=== PATIENT | male | born 1970 | race Caucasian/White ===

== ENCOUNTER 2020-01-10 09:55 | Emergency (ER) | payer BC, SELFPAY ==
[2020-01-10 10:04] VITALS: BP 133/66; PULSE 80; RESP 16; TEMP 36.8; O2SAT 98
--- NOTE | 2020-01-10 10:06 | ED.URI ---
HPI - URI/Sore Throat General Chief Complaint: Upper Respiratory Infection Stated Complaint: cold with congestion Time Seen by Provider: 01/10/20 10:06 Source: patient and RN notes reviewed History of Present Illness HPI Narrative: Patient is a 49-year-old male that presents the urgent care with complaints of rhinorrhea, congestion, stuffy nose, nonproductive cough. Patient states is been ongoing since last Saturday. Patient states that he did get back from a [employer] cruise approximately 1 week ago and he typically has these symptoms after he has been on a cruise . Patient denies any fever or body aches. States that he has been using DayQuil, NyQuil and Advil. Denies any wheezing or shortness of breath. No other acute complaints. No acute distress noted. Patient read the plan of care. Related Data Home Medications Medication Instructions Recorded Confirmed carbidopa-levodopa 1 tablet PO BID 01/10/20 01/10/20 cyanocobalamin (vitamin B-12) 500 mcg PO DAILY 01/10/20 01/10/20 [Vitamin B-12] rosuvastatin 10 mg PO DAILY 01/10/20 01/10/20 ustekinumab [Stelara] 90 mg SUBCUT ONCE 01/10/20 01/10/20 Allergies Allergy/AdvReac Type Severity Reaction Status Date / Time No Known Allergies Allergy Verified 01/10/20 10:14 Review of Systems Review of Systems: Narrative: CONSTITUTIONAL: Denies fever, chills, or sweats. EYES: Denies visual changes, redness, or discharge. ENT: Reports of rhinorrhea, sinus congestion CARDIOVASCULAR: Denies chest pain, palpitations, or edema. RESPIRATORY: Reports of nonproductive cough without wheezing or dyspnea GASTROINTESTINAL: Denies abdominal pain, nausea, vomiting, or diarrhea. GENITOURINARY: Denies dysuria or hematuria. SKIN: Denies rash or itching. MUSCULOSKELETAL: Denies back pain, joint pain, or myalgia. NEUROLOGIC: Denies headache, numbness, or weakness. All other systems reviewed are negative, except as documented in HPI. PMFSH Comments At the time of my signature, I reviewed and agree with the nursing past medical, surgical, social, and family history. There is no relevant family history pertinent to the patient complaint. Exam Narrative: Exam Narrative: GENERAL: This is a well-nourished, well-developed patient, in no apparent distress. HEAD: normocephalic, atraumatic. EYES: PERRL. Sclera clear/white. Vision is grossly intact. EARS: External ears normal, auditory canals clear and without drainage, TMs normal without perforation. Hearing grossly intact. NOSE: External nose normal with no obvious nasal discharge, nares without redness, clear rhinorrhea. THROAT: Mucous membranes moist, posterior pharynx clear. Moderate postnasal drainage NECK: Neck supple, non-tender without lymphadenopathy CARDIOVASCULAR: Regular rate and rhythm without murmurs, gallops, or rubs. RESPIRATORY: Clear to auscultation. Breath sounds equal bilaterally. No wheezes, rales, or rhonchi. SKIN: warm, intact with no suspicious lesions or rash, good texture and turgor. NEURO: awake, alert, and oriented to person, place and time. There were no obvious focal neurologic abnormalities. EXTREMITIES: No clubbing, cyanosis, or edema. Course Vital Signs Vital signs: Vital Signs Temperature 98.3 F 01/10/20 10:04 Pulse Rate 80 01/10/20 10:04 Respiratory Rate 16 01/10/20 10:04 Blood Pressure 133/66 01/10/20 10:04 Pulse Oximetry 98 01/10/20 10:04 Temperature 98.3 F 01/10/20 10:04 Pulse Rate 80 01/10/20 10:04 Respiratory Rate 16 01/10/20 10:04 Blood Pressure 133/66 01/10/20 10:04 Pulse Oximetry 98 01/10/20 10:04 Reviewed MDM - URI/Sore Throat MDM Narrative Medical decision making narrative: Advised the patient to complete steroid regimen as prescribed. Use Flonase and Claritin for allergic rhinitis and congestion relief. May use Advil/Tylenol as needed. Use humidifier at night. Make sure to eat and drink with the medication. Increase fluids. Follow-up with PCP within 2 to 5 days
== END 2020-01-10 10:23 | disposition home or self-care (01) ==
PROVIDERS: Emergency Provider Nurse Practitioner Family
DX: J06.9 Acute upper respiratory infection, unspecified (principal); G20 Parkinson's disease; K50.90 Crohn's disease, unspecified, without complications
CPT/HCPCS: 99213; G0463

== ENCOUNTER 2025-03-27 13:49 | Emergency (ER) | payer BC, SELFPAY ==
--- OUTSIDE RECORDS SUMMARY | 2025-03-27 13:51 | XMS_ITS | Encounter Summary ---
Author Organization [facility] Address [address] [facility] [place] [address] Phone Care Team Providers Care Avionics Systems Technician Name Role Phone Cem Hinojosa MD Primary Care Provider [phone] Kajal Varma MD Unavailable [phone] Luis Bahena MD Unavailable [phone] Reason for Visit * Reason Comments Medication Refill Encounter Details Date Type Department Care Team (Late st Contact Info) Description 02/19/2024 [facility]ill [facility] [address]2 [place] [phone] Cem Hinojosa MD [address] [address] Medication Refill Social History Tobacco Use Types Packs/Day Years Used Date Smoking Tobacco: Never Smokeless Tobacco: Never Alcohol Use Standard Drinks/Week Comments No 0 (1 standard drink = 0.6 oz pur e alcohol) PHQ-2 Answer Date Recorded Total Score - Questions 1-9 0 02/02 Education Answer Date Recorded What is the highest level of school you have completed or the highest degree you have received? 12th grade 09/02/2023 Sexually Active Control Partners Comments Yes Female Sex and Gender Information Value Date Recorded Sex Assigned at Not on file Legal Sex Male 12:12 AM CDT Gender Identity Not on file Sexual Orientation Not on file documented as of this encounter Miscellaneous Notes * Telephone Encounter - Lavern García RN - 02/19/2024 9:52 AM CDT Medication failed the protocol, provider to review and approve the medication order if appropriate. Requested Prescriptions Pending Prescriptions Disp Refills vitamin b-12 (CYANOCOBALAMIN) 500 MCG Tablet [Pharmacy Med Name: VITAMIN B-12 500 MCG TABLET] 90 Tablet 1 Sig: TAKE 1 TABLET BY MOUTH EVERY DAY Not Delegated - Off Protocol Failed - 02/19/2024 12:05 AM Failed - This refill cannot be delegated Passed - Visit with relevant provider in past 12 months or upcoming 90 days Recent Visits Date Type Provider Dept 09/03/23 Office Visit Cem Hinojosa MD [facility] Showing recent visits within past 365 days and meeting all other requirements Future Appointments Date Type Provider Dept 03/02/24 Appointment Cem Hinojosa MD [facility] Showing future appointments within next 90 days and meeting all other requirements documented in this encounter Plan of Treatment Upcoming Encounters Date Type Department Care Team (Late st Contact Info) Description 08/23/2025 3:45 PM CDT Office Visit [facility] Medical [facility] - Neurology - [place] [address] [place] [address] Luis Bahena MD #2 [place] [address] 09/09/2025 3:45 PM REFERRAL SPECIALIST Office Visit [facility] Medical [facility] - Family Medicine - [place] [address] [place] [address] Cem Hinojosa MD [address] [address] documented as of this encounter Visit Diagnoses Not on filedocumented in this encounter Additional Health Concerns Assessment Noted Time PHQ-9 Depression Total Score: 0 02/21/20 21 10:15 AM CDT documented as of this encounter Care Teams Avionics Systems Technician Relationship Specialty Start Date End Date Cem Hinojosa MD #[address] [address] PCP - General Family Medicine 12/31/17 Kajal Varma MD #[address] [address] Gastroenterology 10/24/21 Luis Bahena MD [address]2 [place] [address] Consulting Physician Neurology 09/24/22 documented as of this encounter
--- OUTSIDE RECORDS SUMMARY | 2025-03-27 13:51 | XMS_ITS | Encounter Summary ---
Author Organization [facility] Address [address] [facility] [place] [address] Phone Care Team Providers Care Financial Reporting Analyst Name Role Phone Cem Hinojosa MD Primary Care Provider [phone] Kajal Varma MD Unavailable [phone] Luis Bahena MD Unavailable [phone] Reason for Visit * Reason Comments Medication Refill Encounter Details Date Type Department Care Team (Late st Contact Info) Description 12/19/2023 Refill [facility] [address]2 [place] [phone] Cem Hinojosa MD [address] [address] Medication Refill Social History Tobacco Use Types [...] Telephone Encounter - Lavern García RN - 12/20/2023 10:23 AM CST PRN medication requires review from provider Per nursing clinical judgement, provider to review and approve the medication(s) order(s) if appropriate. Requested Prescriptions Pending Prescriptions Disp Refills sildenafil citrate (VIAGRA) 100 MG Tablet [Pharmacy Med Name: Sildenafil Citrate 100 MG Oral Tablet] 10 Tablet 0 Sig: TAKE 1 TABLET BY MOUTH NEEDED FOR ERECTILE DYSFUNCTION Erectile Dysfunction Medication Protocol Passed - 12/19/2023 7:53 AM Passed - Visit with relevant provider in past 12 months or upcoming 90 days Recent Visits Date Type Provider Dept 09/03/23 Office Visit Cem Hinojosa MD [facility] 02/08/23 Office Visit Robbin Moralez APRN, CUSTOMER ENGINEERING SPECIALIST [facility] Showing recent visits within past 365 days and meeting all other requirements Future Appointments Date Type Provider Dept 03/02/24 Appointment Cem Hinojosa MD [facility] Showing future appointments within next 90 days and meeting all other requirements Passed - Absence of nitrates on med list Passed - Erectile dysfunction on problem list LER TRACTOR OPERATOR documented in this encounter Plan of Treatment Upcoming Encounters Date Type Department Care Team (Late st Contact Info) Description 08/23/2025 3:45 PM CDT Office Visit [facility] Medical [facility] - Neurology - [place] [address]2 [place] [address] Luis Bahena MD [address]2 [place] [address] 09/09/2025 3:45 PM CRAWLER TRACTOR OPERATOR Office Visit [facility] Medical [facility] - Family Medicine [facility] [address]2 [facility] [place] [address] Cem Hinojosa MD #[address] [address] documented as of this encounter Visit Diagnoses Diagnosis Erectile dysfunction, unspecified erectile dysfunction type documented in this encounter Additional Health Concerns Assessment Noted Time PHQ-9 Depression Total Score: 0 02/21/20 21 10:15 AM CDT documented as of this encounter Care Teams Financial Reporting Analyst Relationship Specialty Start Date End Date Cem Hinojosa MD #[address] [address] PCP - General Family Medicine 12/31/17 Kajal Varma MD #[address] [address] Gastroenterology 10/24/21 Luis Bahena MD [address]2 [place] [address] Consulting Physician Neurology 09/24/22 documented as of this encounter
--- OUTSIDE RECORDS SUMMARY | 2025-03-27 13:51 | XMS_ITS | Encounter Summary ---
Author Organization [facility] Address [address] [facility] [place] [address] Phone Care Team Providers Care Circular Saw Filer Name Role Phone Cem Hinojosa MD Primary Care Provider [phone] aKjal Varma MD Unavailable [phone] Luis Bahena MD Unavailable [phone] Reason for Visit * Reason Comments Medication Refill Encounter Details Date Type Department Care Team (Late st Contact Info) Description 04/11/2024 Refill [facility] #2 [place] [address] Cem Hinojosa MD [address] [address] Medication Refill Social History Tobacco Use Types [...] encounter Miscellaneous Notes * Telephone Encounter - Ann Marie Jackman RN - 04/11/2024 4:50 PM CDT PRN medication requires provider review. Per nursing clinical judgement, provider to review and approve the medication(s) order(s) if appropriate. Requested Prescriptions Pending Prescriptions Disp Refills sildenafil citrate (VIAGRA) 100 MG Tablet [Pharmacy Med Name: Sildenafil Citrate 100 MG Oral Tablet] 10 Tablet 0 Sig: TAKE 1 TABLET BY MOUTH NEEDED FOR ERECTILE DYSFUNCTION Erectile Dysfunction Medication Protocol Passed - 04/11/2024 2:37 PM Passed - Visit with relevant provider in past 12 months or upcoming 90 days Recent Visits Date Type Provider Dept 03/02/24 Office Visit Cem Hinojosa MD [facility] 09/03/23 Office Visit Cem Hinojosa MD [facility] Showing recent visits within past 365 days and meeting all other requirements Future Appointments No visits were found meeting these conditions. Showing future appointments within next 90 days and meeting all other requirements Passed - Absence of nitrates on med list Passed - Erectile dysfunction on problem list documented in this encounter Plan of Treatment Upcoming Encounters Date Type Department Care Team (Late st Contact Info) Description 08/23/2025 3:45 PM CDT Office Visit [facility] - Neurology [facility] #2 [place] [address] Luis Bahena MD #2 [place] [address] 09/09/2025 3:45 PM ELECTRICAL AND INSTRUMENT ENGINEER Office Visit [facility] Family Medicine [facility] #2 [place] [address] Cem Hinojosa MD #[address] [address] documented as of this encounter Visit Diagnoses Diagnosis Erectile dysfunction, unspecified erectile dysfunction type documented in this encounter Additional Health Concerns Assessment Noted Time PHQ-9 Depression Total Score: 0 02/21/20 21 10:15 AM CDT documented as of this encounter Care Teams Circular Saw Filer Relationship Specialty Start Date End Date Cem Hinojosa MD #[address] [address] PCP - General Family Medicine 12/31/17 Kajal Varma MD #[address] [address] Gastroenterology 10/24/21 Luis Bahena MD [address]2 [place] [address] Consulting Physician Neurology 09/24/22 documented as of this encounter
--- OUTSIDE RECORDS SUMMARY | 2025-03-27 13:51 | XMS_ITS | Encounter Summary ---
Author Organization [facility] Address [address] [place] [address] Phone Care Team Providers Care Stock Blender Name Role Phone Cem Hinojosa MD Primary Care Provider [phone] Kajal Varma MD Unavailable [phone] Luis Bahena MD Unavailable [phone] Reason for Visit * Reason Comments Medication Refill Encounter Details Date Type Department Care Team (Late st Contact Info) Description 09/23/2023 Refill [facility] Medicine [facility] #2 [place] [phone] Cem Hinojosa MD [address] [address] Medication Refill Social History Tobacco Use Types [...] on file Sexual Orientation Not on file COVID-19 Exposure Response Date Recorded In the last 10 days, have yo u been in contact with someone who was confirmed or suspected to have Coronavirus/COVID-19? No / Unsure 09/02/2023 10:01 AM CDT documented as of this encounter Miscellaneous Notes * Telephone Encounter - Lavern García RN - 09/23/2023 2:52 PM CST PRN medication requires review from provider Per nursing clinical judgement, provider to review and approve the medication(s) order(s) if appropriate. Requested Prescriptions Pending Prescriptions Disp Refills sildenafil citrate (VIAGRA) 100 MG Tablet [Pharmacy Med Name: Sildenafil Citrate 100 MG Oral Tablet] 10 Tablet 0 Sig: TAKE 1 TABLET BY MOUTH NEEDED FOR ERECTILE DYSFUNCTION Erectile Dysfunction Medication Protocol Passed - 09/23/2023 9:58 AM Passed - Visit with relevant provider in past 12 months or upcoming 90 days Recent Visits Date Type Provider Dept 09/03/23 Office Visit Cem Hinojosa MD [facility] 02/08/23 Office Visit Robbin Moralez APRN, PATTERN DESIGNER [facility] Showing recent visits within past 365 days and meeting all other requirements Future Appointments No visits were found meeting these conditions. Showing future appointments within next 90 days and meeting all other requirements Passed - Absence of nitrates on med list Passed - Erectile dysfunction on problem list ONNEL RESEARCH SCIENTIST documented in this encounter Plan of Treatment Upcoming Encounters Date Type Department Care Team (Late st Contact Info) Description 08/23/2025 3:45 PM CDT Office Visit [facility] - Neurology - [place] #2 [place] [address] Luis Bahena MD #2 [place] [address] 09/09/2025 3:45 PM PERSONNEL RESEARCH SCIENTIST Office Visit [facility] - Family Medicine - [place] [address]2 [place] [address] Cem Hinojosa MD #[address] [address] documented as of this encounter Visit Diagnoses Diagnosis Erectile dysfunction, unspecified erectile dysfunction type documented in this encounter Additional Health Concerns Assessment Noted Time PHQ-9 Depression Total Score: 0 02/21/20 21 10:15 AM CDT documented as of this encounter Care Teams Stock Blender Relationship Specialty Start Date End Date Cem Hinojosa MD #[address] [address] PCP - General Family Medicine 12/31/17 Kajal Varma MD #[address] [address] Gastroenterology 10/24/21 Luis Bahena MD #2 [place] [address] Consulting Physician Neurology 09/24/22 documented as of this encounter
--- OUTSIDE RECORDS SUMMARY | 2025-03-27 13:51 | XMS_ITS | Encounter Summary ---
Author Organization [facility] Address [address] [place] [address] Phone Care Team Providers Care Oxygen Plant Operator Name Role Phone Nik Horn DO Unavailable [phone] Cem Hinojosa MD Primary Care Provider [phone] Encounter Details Date Type Department Care Team (Late st Contact Info) Description 03/17/2020 Telephone [facility] Gastroenterology [address] [place] [address] 8th [place] [address] [place] [address] Jessica Rodrigues, [facility] Social History Tobacco Use Types Packs/Day Years Used Date Smoking Tobacco: Never Smokeless Tobacco: Never Alcohol Use Standard Drinks/Week Comments No 0 (1 standard drink = 0.6 oz pur e alcohol) Sex and Gender Information Value Date Recorded Sex Assigned at Not on file Legal Sex Male 10:48 AM RN [facility] Gender Identity Not on file Sexual Orientation Not on file documented as of this encounter Plan of Treatment Not on file documented as of this encounter Visit Diagnoses Not on filedocumented in this encounter Care Teams Oxygen Plant Operator Relationship Specialty Start Date End Date Cem Hinojosa MD [address] [address] PCP - General 03/04/18 Nik Horn, [address] [place] [address] 08/16/17 documented as of this encounter
--- OUTSIDE RECORDS SUMMARY | 2025-03-27 13:51 | XMS_ITS | Encounter Summary ---
Author Organization [facility] Address [address] [facility] [place] [address] Phone Care Team Providers Care Embedded Software Test Engineer Name Role Phone Cem Hinojosa MD Primary Care Provider [phone] Kajal Varma MD Unavailable Luis Bahena MD Unavailable [phone] Reason for Visit * Reason Comments Medication Refill Encounter Details Date Type Department Care Team (Late st Contact Info) Description 08/04/2024 Refill [facility] - Neu[facility] #2 [place] [address] Cem Hinojosa MD [address] [address] Medication Refill Social History Tobacco Use Types [...] Telephone Encounter - Lavern García RN - 08/04/2024 3:41 PM CDT Name from pharmacy: CARBIDOPA-LEVODOPA 25-100 TAB Will file in chart as: carbidopa-levodopa (SINEMET) 25-100 MG Tablet The original prescription was reordered on 08/04/2024 by Luis Bahena MD. documented in this encounter Plan of Treatment Upcoming Encounters Date Type Department Care Team (Late st Contact Info) Description 08/23/2025 3:45 PM CDT Office Visit [facility] - Neurology - [place] #2 [facility] [place] [address] Luis Bahena MD #2 [place] [address] 09/09/2025 3:45 PM PROGRAM CONTROL ANALYST Office [facility] - Family Medicine - [place] #2 [place] [address] Cem Hinojosa MD #[address] [place] [address] documented as of this encounter Visit Diagnoses Not on filedocumented in this encounter Additional Health Concerns Assessment Noted Time PHQ-9 Depression Total Score: 0 02/21/20 21 10:15 AM CDT documented as of this encounter Care Teams Embedded Software Test Engineer Relationship Specialty Start Date End Date Cem Hinojosa MD #[address] [place] [address] PCP - General Family Medicine 12/31/17 Kajal Varma MD [address] [place] [address] Gastroenterology 10/24/21 Luis Bahena MD #2 [place] [address] Consulting Physician Neurology 09/24/22 documented as of this encounter
--- OUTSIDE RECORDS SUMMARY | 2025-03-27 13:51 | XMS_ITS | Encounter Summary ---
Author Organization [facility] Address [address] [facility] [place] [address] Phone Care Team Providers Care Water Treatment Operator Name Role Phone Cem Hinojosa MD Primary Care Provider [phone] Kajal Varma MD Unavailable [phone] Luis Bahena MD Unavailable [phone] Reason for Visit * Reason Comments Medication Refill Encounter Details Date Type Department Care Team (Late st Contact Info) Description 11/01/2023 Refill [facility] #2 [place] [address] Cem Hinojosa MD #[address] [address] Medication Refill Social History Tobacco Use Types [...] Telephone Encounter - Lavern García RN - 11/01/2023 1:30 PM CST PRN medication requires review from provider Per nursing clinical judgement, provider to review and approve the medication(s) order(s) if appropriate. Requested Prescriptions Pending Prescriptions Disp Refills sildenafil citrate (VIAGRA) 100 MG Tablet [Pharmacy Med Name: Sildenafil Citrate 100 MG Oral Tablet] 10 Tablet 0 Sig: TAKE 1 TABLET BY MOUTH NEEDED FOR ERECTILE DYSFUNCTION Erectile Dysfunction Medication Protocol Passed - 11/01/2023 12:26 PM Passed - Visit with relevant provider in past 12 months or upcoming 90 days Recent Visits Date Type Provider Dept 09/03/23 Office Visit Cem Hinojosa MD [facility] 02/08/23 Office Visit Robbin Moralez APRN, QUANTITATIVE STRATEGY ANALYST [facility] Showing recent visits within past 365 days and meeting all other requirements Future Appointments No visits were found meeting these conditions. Showing future appointments within next 90 days and meeting all other requirements Passed - Absence of nitrates on med list Passed - Erectile dysfunction on problem list VIORAL INSTRUCTOR documented in this encounter Plan of Treatment Upcoming Encounters Date Type Department Care Team (Late st Contact Info) Description 08/23/2025 3:45 PM CDT Office Visit [facility] - Neurology [facility] [place] [address] Luis Bahena MD #2 [place] [address] 09/09/2025 3:45 PM BEHAVIORAL INSTRUCTOR Office Visit [facility] Medical [facility] - Family Medicine [facility] [place] [address] Cem Hinojosa MD #[address] [address] documented as of this encounter Visit Diagnoses Diagnosis Erectile dysfunction, unspecified erectile dysfunction type documented in this encounter Additional Health Concerns Assessment Noted Time PHQ-9 Depression Total Score: 0 02/21/20 21 10:15 AM CDT documented as of this encounter Care Teams Water Treatment Operator Relationship Specialty Start Date End Date Cem Hinojosa MD #[address] [address] PCP - General Family Medicine 12/31/17 Kajal Varma MD #[address] [address] Gastroenterology 10/24/21 Luis Bahena MD #2 [place] [address] Consulting Physician Neurology 09/24/22 documented as of this encounter
--- OUTSIDE RECORDS SUMMARY | 2025-03-27 13:51 | XMS_ITS | Encounter Summary ---
Author Organization [facility] Address [address] [facility] [place] [address] Phone Care Team Providers Care Poultry Hanger Name Role Phone Cem Hinojosa MD Primary Care Provider [phone] Kajal Varma MD Unavailable [phone] Luis Bahena MD Unavailable [phone] Encounter Details Date Type Department Care Team (Late st Contact Info) Description 03/22/2025 Results Follow-Up [facility] - Family Medicine [facility] [address] [place] [address] Cem Hinojosa MD #[address] [address] VITAMIN D, 25 HYDROXY TOTAL Social History Tobacco Use Types Packs/Day Years Used Date Smoking Tobacco: Never Smokeless Tobacco: Never Alcohol Use Standard Drinks/Week Comments Never 0 (1 standard drink = 0.6 oz pur e alcohol) [facility] Utilities Answer Date Recorded In the past 12 months has [employer], gas, oil, or water company threatened to shut off services in your home? Patient declined 09/01/2024 Social Connection and Isolation Panel [NHANES] A nswer Date Recorded In a typical week, how many times do you talk on the phone with family, friends, or neighbors? Patient declined 09/01/2024 How often do you get togethe r with friends or relatives? Patient declined 09/01/2024 How often do you attend spiritism or catholic serv ices? Patient declined 09/01/2024 Do you belong to any clubs o r organizations such as spiritism groups, unions, fraternal or athletic groups, or school groups? Patient declined 09/01/2024 How often do you attend meet ings of the clubs or organizations you belong to? Patient declined 09/01/2024 Are you , , di vorced, , never , or living with a partner? Patient declined 09/01/2024 AUDIT-C Answer Date Recorded Q1: How often do you have a drink containing alc ohol? Patient declined 09/01/2024 Q2: How many drinks containi ng alcohol do you have on a typical day when you are drinking? Patient declined 09/01/2024 Q3: How often do you have si x or more drinks on one occasion? Patient declined 09/01/2024 Overall Financial Resource Strain (CARDIA) Answe r Date Recorded How hard is it for you to pa y for the very basics like food, housing, medical care, and heating? Patient declined 09/01/2024 PHQ-2 Answer Date Recorded Total Score - Questions 1-9 4 05/0 04/2025 [facility] - Occupational Stress Questionnaire Answer Date Recorded Do you feel stress - tense, restless, nervous, or anxious, or unable to sleep at night because your mind is troubled all the time - these days? Patient declined 09/01/2024 Exercise Vital Sign Answer Date Recorde d On average, how many days pe r week do you engage in moderate to strenuous exercise (like a brisk walk)? Patient declined On average, how many minutes do you engage in exercise at this level? Patient declined 09/01/2024 Hunger Vital Sign Answer Date Recorded Within the past 12 months, y ou worried that your food would run out before you got the money to buy more. Patient declined Within the past 12 months, t he food you bought just didn't last and you didn't have money to get more. Patient declined PRAPARE - Transportation Answer Date Re corded In the past 12 months, has l ack of transportation kept you from medical appointments or from getting medications? Patient declined 09/01/2024 In the past 12 months, has l ack of transportation kept you from meetings, work, or from getting things needed for daily living? Patient declined 09/01/2024 Housing Stability Vital Sign Answer Abraham e Recorded In the last 12 months, was t here a time when you were not able to pay the mortgage or rent on time? Patient declined 09/01/20 24 In the past 12 months, how m any times have you moved where you were living? 0 09/01/2024 Homeless in the Last Year Not on file 2023 Education Answer Date Recorded What is the [...] on file documented as of this encounter Progress Notes * Itzel Galeano CMA - 03/26/2025 8:55 AM CDT Patient aware * Itzel Galeano CMA - 03/25/2025 10:10 AM CDT Lmom to call back * Itzel Galeano CMA - 03/24/2025 9:57 AM CDT Lmom to call back documented in this encounter Plan of Treatment Upcoming Encounters Date Type Department Care Team (Late st Contact Info) Description 08/23/2025 3:45 PM CDT Office Visit [facility] - Neurology [facility] [address]2 [place] [address] Luis Bahena MD #2 [place] [address] 09/09/2025 3:45 PM KEEPER HEAD Office Visit [facility] - Family [facility] #2 [place] [address] Cem Hinojosa MD #[address] [address] documented as of this encounter Visit Diagnoses Not on filedocumented in this encounter Additional Health Concerns Assessment Noted Time PHQ-9 Depression Total Score: 4 03/09/20 25 3:43 PM CDT documented as of this encounter Care Teams Poultry Hanger Relationship Specialty Start Date End Date Cem Hinojosa MD #[address] [address] PCP - General Family Medicine 12/31/17 Kajal Varma MD #[address] [address] Gastroenterology 10/24/21 Luis Bahena MD [address]2 [place] [address] Consulting Physician Neurology 09/24/22 documented as of this encounter
--- OUTSIDE RECORDS SUMMARY | 2025-03-27 13:51 | XMS_ITS | Encounter Summary ---
Author Organization [facility] Address [address] [facility] [place] [address] Phone Care Team Providers Care Die Machine Operator Name Role Phone Cem Hinojosa MD Primary Care Provider [phone] Kajal Varma MD Unavailable [phone] Luis Bahena MD Unavailable [phone] Reason for Visit * Reason Comments Medication Refill Encounter Details Date Type Department Care Team (Late st Contact Info) Description 08/01/2022 [facility]ill [facility] #2 [place] [address] Cem Hinojosa MD #[address] [address] Medication Refill Social History Tobacco Use Types Packs/Day Years Used Date Smoking Tobacco: Never Smokeless Tobacco: Never Alcohol Use Standard Drinks/Week Comments No 0 (1 standard drink = 0.6 oz pur e alcohol) PHQ-2 Answer Date Recorded Total Score - Questions 1-9 0 02/02 Sexually Active Control Partners Comments Yes Female [...] suspected to have Coronavirus/COVID-19? No / Unsure 07/17/2022 8:40 AM CDT documented as of this encounter Miscellaneous Notes * Telephone Encounter - Lavern García RN - 08/01/2022 12:05 PM CDT Medication failed the protocol, provider to review and approve the medication order if appropriate. Requested Prescriptions Pending Prescriptions Disp Refills Cyanocobalamin (B-12) 500 MCG Tablet [Pharmacy Med Name: B-12 500 MCG TABLET] 30 Tablet 5 Sig: TAKE 1 TABLET BY MOUTH EVERY DAY Not Delegated - Off Protocol Failed - 08/01/2022 10:36 AM Failed - This refill cannot be delegated Passed - Visit with relevant provider in past 12 months or upcoming 90 days Recent Visits Date Type Provider Dept 07/17/22 Office Visit Cem Hinojosa MD [facility] 04/03/22 Office Visit Cem Hinojosa MD [facility] 01/01/22 Office Visit Cem Hinojosa MD [facility] 09/25/21 Office Visit Robbin Moralez APRN, SUPERVISOR MOLDING [facility] [place] Showing recent visits within past 365 days and meeting all other requirements Future Appointments Date Type Provider Dept 10/22/22 Appointment Cem Hinojosa MD [facility] Showing future appointments within next 90 days and meeting all other requirements documented in this encounter Plan of Treatment Upcoming Encounters Date Type Department Care Team (Late st Contact Info) Description 08/23/2025 3:45 PM CDT Office Visit [facility] - Neurology - [place] [address] [place] [address] Luis Bahena MD [address] [place] [address] 09/09/2025 3:45 PM PETROPHYSICAL ENGINEER Office Visit [facility] Medical [facility] - Family Medicine - [place] [address] [place] [address] Cem Hinojosa MD [address] [address] documented as of this encounter Visit Diagnoses Not on filedocumented in this encounter Additional Health Concerns Assessment Noted Time PHQ-9 Depression Total Score: 0 02/21/20 21 10:15 AM CDT documented as of this encounter Care Teams Die Machine Operator Relationship Specialty Start Date End Date Cem Hinojosa MD [address] [address] PCP - General Family Medicine 12/31/17 Kajal Varma MD #[address] [address] Gastroenterology 10/24/21 Luis Bahena MD [address]2 [place] [address] Consulting Physician Neurology 09/24/22 documented as of this encounter
--- OUTSIDE RECORDS SUMMARY | 2025-03-27 13:51 | XMS_ITS | Encounter Summary ---
Author Organization [facility] Address [address] [facility] [place] [address] Phone Care Team Providers Care Recruiting Associate Name Role Phone Cem Hinojosa MD Primary Care Provider [phone] Kajal Varma MD Unavailable [phone] Luis Bahena MD Unavailable [phone] Reason for Visit * Reason Comments Medication Refill Encounter Details Date Type Department Care Team (Late Contact Info) Description 11/15/2022 Refill [facility] #2 [place] [address] Luis Bahena MD #2 [place] [address] Medication Refill Social History Tobacco Use Types [...] as of this encounter Plan of Treatment Upcoming Encounters Date Type Department Care Team (Late Contact Info) Description 08/23/2025 3:45 PM CDT Office Visit [facility] - Neurology [facility] [address] [place] [address] Luis Bahena MD [address] [place] [address] 09/09/2025 3:45 PM TACK COVERER Office Visit [facility] Family Medicine [facility] [address] [facility] [address] Cem Hinojosa MD [address] [address] documented as of this encounter Visit Diagnoses Diagnosis Parkinson's disease Paralysis agitans documented in this encounter Additional Health Concerns Assessment Noted Time PHQ-9 Depression Total Score: 0 02/21/20 21 10:15 AM CDT documented as of this encounter Care Teams Recruiting Associate Relationship Specialty Start Date End Date Cem Hinojosa MD [address] [address] PCP - General Family Medicine 12/31/17 Kajal Varma MD [address] [address] Gastroenterology 10/24/21 Luis Bahena MD [address]2 [place] [address] Consulting Physician Neurology 09/24/22 documented as of this encounter
--- OUTSIDE RECORDS SUMMARY | 2025-03-27 13:51 | XMS_ITS | Encounter Summary ---
Author Organization [facility] Address [address] [facility] [place] [address] Phone Care Team Providers Care Melter Helper Name Role Phone Cem Hinojosa MD Primary Care Provider [phone] Kajal Varma MD Unavailable Luis Bahena MD Unavailable [phone] Reason for Visit * Reason Comments Medication Refill Encounter Details Date Type Department Care Team (Late st Contact Info) Description 01/29/2024 Refill [facility] Family Medicine [facility] #2 [place] [address] Cem Hinojosa MD #[address] [address] Medication Refill Social History Tobacco Use Types [...] Telephone Encounter - Lavern García RN - 01/30/2024 9:33 AM CDT PRN medication requires review from provider Per nursing clinical judgement, provider to review and approve the medication(s) order(s) if appropriate. Requested Prescriptions Pending Prescriptions Disp Refills sildenafil citrate (VIAGRA) 100 MG Tablet [Pharmacy Med Name: Sildenafil Citrate 100 MG Oral Tablet] 10 Tablet 0 Sig: TAKE 1 TABLET BY MOUTH NEEDED FOR ERECTILE DYSFUNCTION Erectile Dysfunction Medication Protocol Passed - 01/29/2024 4:03 PM Passed - Visit with relevant provider in past 12 months or upcoming 90 days Recent Visits Date Type Provider Dept 09/03/23 Office Visit Cem Hinojosa MD [facility] [place] 02/08/23 Office Visit Robbin Moralez APRN, CUTTING AND BONING SUPERVISOR [facility] Show[facility] recent visits within past 365 days and meeting all other requirements Future Appointments Date Type Provider Dept 03/02/24 Appointment Cem Hinojosa MD [facility] [place] Showing future appointments within next 90 days and meeting all other requirements Passed - Absence of nitrates on med list Passed - Erectile dysfunction on problem list documented in this encounter Plan of Treatment Upcoming Encounters Date Type Department Care Team (Late st Contact Info) Description 08/23/2025 3:45 PM CDT Office Visit [facility] - Neurology [facility] [place] [address] Luis Bahena MD #2 [facility] [place] [address] 09/09/2025 3:45 PM MANAGER OF SOFTWARE Office Visit [facility] Medical [facility] - Family Medicine [facility] [address] [place] [address] Cem Hinojosa MD #[address] [place] [address] documented as of this encounter Visit Diagnoses Diagnosis Erectile dysfunction, unspecified erectile dysfunction type documented in this encounter Additional Health Concerns Assessment Noted Time PHQ-9 Depression Total Score: 0 02/21/20 21 10:15 AM CDT documented as of this encounter Care Teams Melter Helper Relationship Specialty Start Date End Date Cem Hinojosa MD #[address] [address] PCP - General Family Medicine 12/31/17 Kajal Varma MD #[address] [address] Gastroenterology 10/24/21 Luis Bahena MD #2 [place] [address] Consulting Physician Neurology 09/24/22 documented as of this encounter
--- OUTSIDE RECORDS SUMMARY | 2025-03-27 13:51 | XMS_ITS | Encounter Summary ---
Author Organization [facility] Address [address] [facility] [place] [address] Phone Care Team Providers Care Adjunct Communications Faculty Member Name Role Phone Cem Hinojosa MD Primary Care Provider [phone] Kajal Varma MD Unavailable [phone] Luis Bahena MD Unavailable [phone] Reason for Visit * Reason Comments Medication Refill Encounter Details Date Type Department Care Team (Late st Contact Info) Description 01/10/2023 Refill [facility] Family [facility] #2 [place] [address] Cem Hinojosa MD #[address] [address] Medication Refill Social History Tobacco Use Types [...] suspected to have Coronavirus/COVID-19? No / Unsure 12/14/2022 3:10 PM CORN GROWER documented as of this encounter Miscellaneous Notes * Telephone Encounter - Cem Hinojosa MD - 01/11/2023 10:11 AM CORN GROWER Thanks for the update! GROWER * Telephone Encounter - Lavern García RN - 01/11/2023 7:37 AM CST Pt is scheduled to see Robbin 02/08/23. GROWER * Telephone Encounter - Cem Hinojosa MD - 01/10/2023 8:11 PM CORN GROWER Please make sure he is scheduled. Overdue for appointment. Thanks! GROWER * Telephone Encounter - Lavern García RN - 01/10/2023 4:30 PM CST Medication failed the protocol, provider to review and approve the medication order if appropriate. Requested Prescriptions Pending Prescriptions Disp Refills rosuvastatin (CRESTOR) 5 MG Tablet [Pharmacy Med Name: ROSUVASTATIN TAB 5MG] 90 Tablet 3 Sig: TAKE 1 TABLET NIGHTLY Hmg CoA Reductase Inhibitors Protocol Failed - 01/10/2023 4:13 PM Failed - Lipid panel in past 12 months LDL Date Value Ref Range Status 02/03/2022 0 0 - 130 mg/dL Final HDL CHOLESTEROL Date Value Ref Range Status 09/25/2021 49.1 >40 mg/dL Final CHOLESTEROL Date Value Ref Range Status 09/25/2021 188 <=200 mg/dL Final TRIGLYCERIDES Date Value Ref Range Status 09/25/2021 98 <150 mg/dL Final VLDL Date Value Ref Range Status 09/25/2021 20 5 - 55 mg/dL Final CHOL/HDL RATIO Date Value Ref Range Status 09/25/2021 3.8 0.0 - 4.4 Final NON-HDL CHOLESTEROL Date Value Ref Range Status 09/25/2021 138.9 (H) <130 mg/dL Final Passed - Visit with relevant provider in past 12 months or upcoming 90 days Recent Visits Date Type Provider Dept 07/17/22 [facility]22 Office Visit [facility] Show[facility] recent visits within past 365 days and meeting all other requirements Future Appointments Date Type Provider Dept 02/08/23 Appointment Robbin Moralez APRN, ACOUSTICAL INSTALLER [facility] Showing future appointments within next 90 days and meeting all other requirements GROWER documented in this encounter Plan of Treatment Upcoming Encounters Date Type Department Care Team (Late st Contact Info) Description 08/23/2025 3:45 PM CDT Office Visit [facility] Group - Neurology - [place] #2 [place] [address] Luis Bahena MD #2 [place] [address] 09/09/2025 3:45 PM CORN GROWER Office Visit [facility] Medical [facility] - Family Medicine [facility] #2 [place] [address] Cem Hinojosa MD #[address] [address] documented as of this encounter Visit Diagnoses Not on filedocumented in this encounter Additional Health Concerns Assessment Noted Time PHQ-9 Depression Total Score: 0 02/21/20 21 10:15 AM CDT documented as of this encounter Care Teams Adjunct Communications Faculty Member Relationship Specialty Start Date End Date Cem Hinojosa MD #[address] [address] PCP - General Family Medicine 12/31/17 Kajal Varma MD #[address] [id number] Gastroenterology 10/24/21 Luis Bahena MD #2 [place] [address] Consulting Physician Neurology 09/24/22 documented as of this encounter
--- OUTSIDE RECORDS SUMMARY | 2025-03-27 13:51 | XMS_ITS | Encounter Summary ---
Author Organization [facility] Address [address] [facility] [place] [address] Phone Care Team Providers Care Rf Test Engineer Name Role Phone Cem Hinojosa MD Primary Care Provider [phone] Kajal Varma MD Unavailable [phone] Luis Bahena MD Unavailable [phone] Reason for Visit * Reason Comments Medication Refill Encounter Details Date Type Department Care Team (Late st Contact Info) Description 05/23/2023 Refill [facility] #2 [place] [address] Cem Hinojosa MD #[address] [address] Medication Refill Social History Tobacco Use Types [...] Telephone Encounter - Lavern García RN - 05/24/2023 11:45 AM CDT PRN medication requires review from provider Per nursing clinical judgement, provider to review and approve the medication(s) order(s) if appropriate. Requested Prescriptions Pending Prescriptions Disp Refills sildenafil citrate (VIAGRA) 100 MG Tablet [Pharmacy Med Name: Sildenafil Citrate 100 MG Oral Tablet] 10 Tablet 0 Sig: Take 1 Tablet by mouth as needed for Erectile Dysfunction. Erectile Dysfunction Medication Protocol Passed - 05/23/2023 4:57 PM Passed - Visit with relevant provider in past 12 months or upcoming 90 days Recent Visits Date Type Provider Dept 02/08/23 Office Visit Robbin Moralez APRN, CNP [facility] [place] 07/17/22 Office Visit Cem Hinojosa MD [facility] Showing recent visits within past 365 [...] Description 08/23/2025 3:45 PM CDT Office Visit [facility] - Neurology [facility] #2 [place] [address] Luis Bahena MD #2 [place] [address] 09/09/2025 3:45 PM AVP Office Visit [facility] Medical [facility] - Family Medicine [facility] #2 [place] [address] Cem Hinojosa MD #[address] [address] documented as of this encounter Visit Diagnoses Diagnosis Erectile dysfunction, unspecified erectile dysfunction type documented in this encounter Additional Health Concerns Assessment Noted Time PHQ-9 Depression Total Score: 0 02/21/20 21 10:15 AM CDT documented as of this encounter Care Teams Rf Test Engineer Relationship Specialty Start Date End Date Cem Hinojosa MD #[address] [address] PCP - General Family Medicine 12/31/17 Kajal Varma MD #[address] [address] Gastroenterology 10/24/21 Luis Bahena MD #2 [place] [address] Consulting Physician Neurology 09/24/22 documented as of this encounter
--- OUTSIDE RECORDS SUMMARY | 2025-03-27 13:51 | XMS_ITS | Encounter Summary ---
Author Organization [facility] Address [address] [facility] [place] [place] [address] Phone Care Team Providers Care Inhalation Therapy Aides Teacher Name Role Phone Cem Hinojosa MD Primary Care Provider [phone] Kajal Varma MD Unavailable [phone] Luis Bahena MD Unavailable [phone] Reason for Visit * Reason Onset Date Comments Medication Refill Medication Refill 09/27/2020 Encounter Details Date Type Department Care Team (Late st Contact Info) Description 09/15/2020 [facility] [address] [place] [address] Cem Hinojosa MD [address] [address] Medication Refill; Medication Refill Social History Tobacco Use Types Packs/Day Years Used Date Smoking Tobacco: Never Smokeless Tobacco: Never Alcohol Use Standard Drinks/Week Comments No 0 (1 standard drink = 0.6 oz pur e alcohol) PHQ-2 Answer Date Recorded Total Score - Questions 1-9 0 04/05 Sex and Gender Information Value Date Recorded Sex Assigned at Not on file Legal Sex Male 12:12 AM CDT Gender Identity Not on file Sexual Orientation Not on file COVID-19 Exposure Response Date Recorded In the last month, have you been in contact with someone who was confirmed or suspected to have Coronavirus / COVID-19? No / Unsure 09/12/2020 7:57 AM DIESEL POWER MECHANIC documented as of this encounter Miscellaneous Notes * Telephone Encounter - Sandy Cavanaugh RN - 09/16/2020 7:12 AM CST Medication failed the protocol, provider to review and approve the medication order if appropriate. Requested Prescriptions Pending Prescriptions Disp Refills vitamin b-12 (CYANOCOBALAMIN) 500 MCG Tablet [Pharmacy Med Name: VITAMIN B-12 TABS 500MCG] 90 Tab 3 Sig: TAKE 1 TABLET DAILY Off-Protocol Failed - 09/15/2020 11:20 PM Failed - Medication not assigned to a protocol, review manually. Passed - Valid encounter within last 12 months Past Office Visits Recent Outpatient Visits 3 weeks ago Right-sided chest wall pain [facility] Family [facility] Cem Hernandez MD 4 months ago Dyslipidemia [facility] Cem Hernandez MD 11 months ago [facility] 1 year ago Neural foraminal stenosis of cervical spine [facility] Robbin Davis APN, RADHA 1 year ago Cervical radicular pain [facility] - Robbin Davis APN, PLANER OPERATOR Upcoming Appointments Future Appointments In 1 month Cem Hinojosa MD [facility] 5 months Luis Bahena MD [facility] Neurology [facility] ESTIMATOR PRINTING - Recent and Past Visits Recent Visits Date Type Provider Dept 08/24/20 Office Visit Cem Hinojosa MD [facility] 05/02/20 Office Visit Cem Hinojosa MD [facility] 10/20/19 Office Visit Robbin Moralez APN, RADHA [facility] 07/07/19 Office Visit Robbin Moralez APN, CNP [facility] Showing recent visits within past 460 days with a meds authorizing provider and meeting all other requirements Future Appointments Date Type Provider Dept 10/31/20 Appointment Cem Hinojosa MD [facility] Showing future appointments within next 90 days with a meds authorizing provider and meeting all other requirements EL POWER MECHANIC documented in this encounter Plan of Treatment Upcoming Encounters Date Type Department Care Team (Late st Contact Info) Description 08/23/2025 3:45 PM CDT Office Visit [facility] - Neurology [facility] #2 [place] [address] Luis Bahena MD [address]2 [place] [address] 09/09/2025 3:45 PM DIESEL POWER MECHANIC Office Visit [facility] Family Medicine [facility] #2 [place] [address] Cem Hinojosa MD [address] [address] documented as of this encounter Visit Diagnoses Not on filedocumented in this encounter Additional Health Concerns Infection Onset Date Last Indicated Resolved Time COVID - 19 Confirmed 10/14/2020 10/14/2020 020 12:18 AM DIESEL POWER MECHANIC Assessment Noted Time PHQ-9 Depression Total Score: 0 05/02/20 20 8:41 AM CDT documented as of this encounter Care Teams Inhalation Therapy Aides Teacher Relationship Specialty Start Date End Date Cem Hinojosa MD #[address] [address] PCP - General Family Medicine 12/31/17 Kajal Varma MD #[address] [address] Gastroenterology 10/24/21 Luis Bahena MD [address] [place] [address] Consulting Physician Neurology 09/24/22 documented as of this encounter
--- OUTSIDE RECORDS SUMMARY | 2025-03-27 13:51 | XMS_ITS | Encounter Summary ---
Author Organization [facility] Address [address] [facility] [place] [address] Phone Care Team Providers Care Joinery Patternmaker Name Role Phone Cem Hinojosa MD Primary Care Provider [phone] Kajal Varma MD Unavailable [phone] Luis Bahena MD Unavailable [phone] Reason for Visit * Reason Comments Medication Refill Encounter Details Date Type Department Care Team (Late Contact Info) Description 01/30/2021 [facility]ill [facility] - [facility] #1 [place] [address] Luis Bahena MD [address]2 [place] [address] Medication Refill Social History Tobacco Use Types Packs/Day Years Used Date Smoking Tobacco: Never Smokeless Tobacco: Never Alcohol Use Standard Drinks/Week Comments No 0 (1 standard drink = 0.6 oz pur e alcohol) PHQ-2 Answer Date Recorded Total Score - Questions 1-9 0 04/05 Sexually Active Control Partners Comments Yes Female Sex and Gender Information Value Date Recorded Sex Assigned at Not on file Legal Sex Male 12:12 AM CDT Gender Identity Not on file Sexual Orientation Not on file documented as of this encounter Plan of Treatment Upcoming Encounters Date Type Department Care Team (Late Contact Info) Description 08/23/2025 3:45 PM CDT Office [facility] - Neurology [facility] #[address] [place] [address] Luis Bahena MD [address] [place] [address] 09/09/2025 3:45 PM VESSEL OPERATOR Office Visit [facility] Family Medicine [facility] [address] [place] [address] Cem Hinojosa MD [address] [address] documented as of this encounter Visit Diagnoses Not on filedocumented in this encounter Additional Health Concerns Assessment Noted Time PHQ-9 Depression Total Score: 0 05/02/20 20 8:41 AM CDT documented as of this encounter Care Teams Joinery Patternmaker Relationship Specialty Start Date End Date Cem Hinojosa MD [address] [address] PCP - General Family Medicine 12/31/17 Kajal Varma MD [address] [address] Gastroenterology 10/24/21 Luis Bahena MD [address] [facility] [address] Consulting Physician Neurology 09/24/22 documented as of this encounter
--- OUTSIDE RECORDS SUMMARY | 2025-03-27 13:51 | XMS_ITS | Clinical Summary ---
Author Organization [facility] Address [address] [address] Phone Care Team Providers Care Mophead Sewer Name Role Phone Cem Hinojosa MD Primary Care Provider [phone] Kajal Varma MD Unavailable [phone] Luis Bahena MD Unavailable [phone] Allergies No known active allergies Medications docusate sodium (COLACE) 100 MG Capsule Take 1 Cap by mouth 2 times daily as needed for Constipation. To be held for loose stools/diarrhea . 60 Cap 018 Active ustekinumab (STELARA) 90 MG/ML Solution Prefilled Syringe 90 mg by Subcutaneous route. 019 Active tacrolimus (PROTOPIC) 0.1 % Ointment Apply. 019 Active Cholecalciferol (VITAMIN D3 PO) Take by mouth. Active Skyrizi 360 MG/2.4ML Solution Cartridge 360 mg by Subcutaneous route. 024 Active Carbidopa-Levodop a (Duopa) 4.63-20 MG/ML SuspensionIndicat ions:Parkinson's disease with dyskinesia and fluctuating manifestations (HCC) ADMINISTER CONTENTS OF ONE DUOPA CASSETTE VIA PEG-J FOR UP TO 16 HOURS EACH DAY. MORNING DOSE: 12ML (LOCKOUT TIME OF 20 HRS), CONTINUOUS DOSE: 3.3 ML/HR, EXTRA DOSE:5 ML (LOCKOUT TIME OF 2 HRS) 2800 mL 11 024 Active rosuvastatin (CRESTOR) 5 MG Tablet TAKE 1 TABLET NIGHTLY 90 Tablet 1 025 Active Fenofibrate Micronized 134 MG CapsuleIndication s:Dyslipidemia TAKE 1 CAPSULE DAILY 90 Capsule 3 025 Active zaleplon (SONATA) 10 MG CapsuleIndication s:Primary insomnia TAKE 1 CAPSULE BY MOUTH EVERY NIGHT 15 Capsule 025 Active omeprazole (PriLOSEC) 40 MG CAPSULE DELAYED RELEASE TAKE 1 CAPSULE BY MOUTH EVERY DAY 90 Capsule 1 025 Active sildenafil citrate (VIAGRA) 100 MG TabletIndications :Erectile dysfunction, unspecified erectile dysfunction type TAKE 1 TABLET BY MOUTH NEEDED FOR ERECTILE DYSFUNCTION 10 Tablet 025 Active carbidopa-levodop a (SINEMET) 25-100 MG Tablet TAKE 1 TABLET BY MOUTH AT NIGHT, 1/2 HOUR BEFORE EATING 90 Tablet 025 Active vitamin b-12 (CYANOCOBALAMIN) 500 MCG Tablet TAKE 1 TABLET BY MOUTH EVERY DAY 90 Tablet 1 025 Active vitamin b-12 (CYANOCOBALAMIN) 500 MCG Tablet TAKE 1 TABLET BY MOUTH EVERY DAY 90 Tablet 1 024 2024 Discontinued carbidopa-levodop a (SINEMET) 25-100 MG Tablet TAKE 1 TABLET BY MOUTH AT NIGHT, 1/2 HOUR BEFORE EATING 90 Tablet 025 2024 Discontinued Active Problems Problem Noted Date Diagnosed Date Multiple lung nodules 09/01/2024 Lung nodule seen on imaging study 07/17/2022 Erectile dysfunction 07/17/2022 Noncompliance 07/17/2022 Constipation 01/02/2022 Bacteriuria 10/31/2020 Hematuria 10/18/2020 Terminal ileitis of small intestine 10/18/2020 Hypokalemia 10/18/2020 Elevated lipase 10/18/2020 Leukopenia 10/18/2020 Elevated LFTs 10/08/[address] nodules on CT 09/24/2020 Coronary artery calcification seen on CT scan Hepatic steatosis 09/24/2020 Right-sided chest wall pain 08/24/2020 High risk medications (not anticoagulants) long- term use 10/18/2019 Elevated serum creatinine 07/12/2019 Obesity (BMI 30-39.9) 01/12/2019 Crohn's disease with complication 09/15/2018 Overview (10/20/2019): Added automatically from request for surgery [id number] Abnormal biliary HIDA scan 02/28/2018 Calculus of gallbladder with out cholecystitis without obstruction 02/19/2018 Generalized postprandial abdominal pain 02/20/20 18 B12 deficiency 02/02/2018 Vitamin D insufficiency 02/02/2018 Fatigue 12/31/2017 PTSD (post-traumatic stress disorder) 10/04/2017 Parkinson's disease 04/30/2016 ADHD (attention deficit hyperactivity disorder) Dyslipidemia Insomnia GERD (gastroesophageal reflux disease) Encounters Date Type Department Care Team Description 03/22/2025 Results Follow-Up [facility] [address]2 [place] [address] Cem Hinojosa MD VITAMIN D, 25 HYDROXY TOTAL 03/20/2025 Refill [facility] #2 [place] [address] Cem Hinojosa MD Medication Refill 03/20/2025 Refill [facility] #2 [place] [address] Luis Bahena MD Medication Refill 03/09/2025 3:45 PM CDT Office Visit [facility] [address] [place] [address] Cem Hinojosa MD Vitamin D insufficiency (Primary Dx); Screening for prostate cancer; Hepatic steatosis Discharge Disposition: Discharged to home or Selfcare 03/09/2025 Travel 02/08/2025 3:30 PM CDT Office Visit [facility] #2 [place] [address] Luis Bahena MD Parkinson's disease with dyskinesia and fluctuating manifestations (HCC) (Primary Dx) Discharge Disposition: Discharged to home or Selfcare 02/08/2025 Travel 02/07/2025 Travel 01/29/2025 Refill [facility]2 [place] [address] Cem Hinojosa MD Medication Refill 01/24/2025 Refill [facility] [place] [address] Cem Hinojosa MD Medication Refill 01/24/2025 Refill [facility] - [facility]rology - [place] [address]2 [place] [address] Luis Bahena MD Medication Refill 01/06/2025 Refill [facility] [address] [place] [address] Cem Hinojosa MD Medication Refill from Last 3 Months Immunizations Immunization Administration Dates Next Due Covid-19, Mrna, Lnp-s, Bival ent, Moderna, 50 Mcg or 25 mcg dose 09/09/2022 Covid-19, Mrna, Lnp-s, PF, 1 00 mcg/0.5 mL Dose (Moderna) 03/25/2021,02/28/2021 Hepatitis A Vaccine 03/30/2016,08/30/2015 Hepatitis B Vaccine 08/09/2016,03/21/2016,2014 Influenza Vaccine 08/30/2015 Influenza Vaccine greater than 3 yrs 04/2022,06/24/2017,08/09/2016,2014,08/04/2011 Influenza Vaccine less than 3 yrs 10/06/2019 Influenza Vaccine, MDCK,quad rivalent, pres free 09/29/2019 Influenza Vaccine, Quadrivalent, PF 11/0 04/2022,09/25/2021,08/24/2020,2017,08/09/2016,08/04/2011 Influenza, Seasonal, Injecta ble, Undefined 10/06/2019,06/24/2017,07/28/2014,2012,08/04/2011,08/09/2010 Pneumococcal Vaccine - 13 Valent 09/29/2019 Pneumococcal Vaccine Adult - 23 Valent 11/04/2005 TDAP Vaccine 10/08/2015,08/30/2015 Tetanus Toxoid, Unspecified Formulation 08/04/2007 Zoster Vaccine Recombinant 11/10/2022,09/09/2022 Family History Medical History Relation Name Comments Heart Disease Father Heart Disease Mother Relation Name Status Comments Father Alive Mother Alive Social History Tobacco Use Types Packs/Day Years Used Date Smoking Tobacco: Never Smokeless Tobacco: Never Tobacco Cessation:Counseling Given: Yes Alcohol Use Standard Drinks/Week Comments Never 0 (1 standard drink = 0.6 oz pur e alcohol) [facility] Utilities Answer Date Recorded In the past 12 months has e electric, gas, oil, or water company threatened to [...] declined 09/01/2024 How often do you attend rastafarian or denominational serv ices? Patient declined 09/01/2024 Do you belong to any clubs o r organizations such as rastafarian groups, unions, fraternal or athletic groups, or [...] Score - Questions 1-9 4 05/0 04/2025 [facility]ational [facility] Questionnaire Answer Date Recorded [...] on file Sexual Orientation Not on file Last Filed Vital Signs Vital Sign Reading Time Taken Comments Blood Pressure 120/72 03/09/2025 3:39 PM CDT Pulse 68 03/09/2025 3:39 PM CDT Temperature 36.3 C (97.3 F) 03/09/2025 3:39 PM CDT Respiratory Rate 16 02/08/2025 3:22 PM CDT Oxygen Saturation 97% 03/09/2025 3:39 PM CDT Inhaled Oxygen Concentration - - Weight 106.6 kg (235 lb) 03/09/2025 3:39 PM CDT Height 180.3 cm (5' 11 ) 03/09/2025 3:39 PM CDT Body Mass Index 32.78 03/09/2025 3:39 PM CDT Plan of Treatment Upcoming Encounters Date Type Department Care Team (Late st Contact Info) Description 08/23/2025 3:45 PM CDT Office Visit [facility] - Neurology - [place] #2 [place] [address] Luis Bahena MD #2 [place] [address] 09/09/2025 3:45 PM CLINICAL REHAB LIAISON Office Visit [facility] - [facility] #[address] [place] [address] Cem Hinojosa MD #[address] [address] Health Maintenance Due Date Last Done Comments Cologuard 2020 Immunochemical Fecal Occult Blood 2020 SARS-COV-2 Immunization ( season) 2024 09/09/2022, 09/27/2021, 03/25/2021, Additional history exists Pneumococcal Immunization (50+ years) (3 of 3 - PCV20 or PCV21) 09/29/2024 09/29/2019, 11/04/2005 Influenza Immunization (Season Ended) 2025 09/09/2022, 09/09/2022, 09/25/2021, Additional history exists Td Immunization Every 10 Years (Adults With 1 Tdap) 10/08/2025 10/08/2015, 08/30/2015 Colonoscopy 08/15/2033 08/15/2023, 08/04, 09/24/2018, Additional history exists Colorectal Cancer Screening 08/15/2033 Respiratory Syncytial Virus (RSV) Immunization (Adult) (1 - 1-dose 75+ series) 2045 08/15/2023, 08/04, 09/24/2018, Additional history exists Hepatitis B Immunization Completed 016, 03/21/2016, 08/30/2015 Pneumococcal Immunization Combined Discontinued 09/29/2019, 11/04/2005 Hepatitis C Virus (HCV) Screening Completed 09/28/2020 Zoster Immunization Completed 11/10/2022, 2 Human Papillomavirus (HPV) Immunization Aged Out No longer eligible based on patient's age to complete this topic Meningococcal Immunization (ACWY) Aged Out No longer eligible based on patient's age to complete this topic Rotavirus Immunization Aged Out No lo nger eligible based on patient's age to complete this topic Medical Devices Implanted Type Area Senior Animator Device Identifier Shelf Expiration Date Model / Serial / Lot Device Clsr 70cm 6fr Angio-Seal Vip .035in Vasc Collagen Valuelink Gw Insertion th J Leather Skinner - [id number] Implanted:Qty: 1 on 10/26/2020 by Shasha Slater MD at [facility] IMPLANT Right: [employer] 06/03/2021 [id number] / / [id number] Procedures Procedure Name Priority Date/Time Associated Diagnosis Comments VITAMIN D, 25 HYDROXY TOTAL Routine 03/13/2025 Vitamin D insufficiency PSA SCREEN Routine 03/13/2025 Screening for prostate cancer PSA FREE & TOTAL 03/13/2025 12:0 0 AM CDT VITAMIN D, 25 HYDROXY TOTAL Today 03/13/2025 12:00 AM CDT Vitamin D insufficiency HM COLONOSCOPY 08/15/2023 12:00 AM CDT HEPATITIS PANEL ACUTE (AHP) Routine 09/28/2020 Hepatic steatosis Elevated LFTs from Last 3 Months or Most Recently Relevant to Health Maintenance Results * VITAMIN D, 25 HYDROXY TOTAL (03/13/2025) Only the most recent of2 resultswithin the time period is included. Blood 03/13/2025 Cem Hinojosa MD CHEMISTRY ORDERABLES Louise l Result * PSA FREE & TOTAL (03/13/2025 12:00 AM CDT) Prostatic Specific Antigen, Free 1.80 SCAN 03/13/2025 Cem Hinojosa MD CHEMISTRY ORDERABLES Louise l Result SCAN * PSA SCREEN (03/13/2025) Blood 03/13/2025 Cem Hinojosa MD CHEMISTRY ORDERABLES Louise l Result * HM COLONOSCOPY (08/15/2023 12:00 AM CDT) 08/15/2023 Provider Scan PROCEDURE/MINOR SURGICAL ORDERAB LES Final Result SCAN * HEPATITIS PANEL ACUTE (AHP) (09/28/2020) Blood Result [facility] Cem Hinojosa MD HEMATOLOGY ORDERABLES Fin al Result from Last 3 Months or Most Recently Relevant to Health Maintenance Insurance [facility] Care Teams Mophead Sewer Relationship Specialty Start Date End Date Cem Hinojosa MD #[address] [address] PCP - General Family Medicine 12/31/17 Kajal Varma MD #[address] [address] Gastroenterology 10/24/21 Luis Bahena MD #2 [place] [address] Consulting Physician Neurology 09/24/22
--- OUTSIDE RECORDS SUMMARY | 2025-03-27 13:51 | XMS_ITS | Encounter Summary ---
Author Organization [facility] Address [address] [facility] [place] [address] Phone Care Team Providers Care Logistics/Shipper Name Role Phone Cem Hinojosa MD Primary Care Provider [phone] Kajal Varma MD Unavailable [phone] Luis Bahena MD Unavailable [phone] Reason for Visit * Reason Comments Medication Refill Encounter Details Date Type Department Care Team (Late st Contact Info) Description 10/26/2023 Refill [facility] - Family Medicine [facility] #2 [place] [address] Cem Hinojosa MD #[address] [address] Medication Refill Social History Tobacco Use Types [...] Telephone Encounter - Lavern García RN - 10/29/2023 9:03 AM CST 01/10/23 - 1 year supply - [facility] mail order OR TAX ACCOUNTANT documented in this encounter Plan of Treatment Upcoming Encounters Date Type Department Care Team (Late st Contact Info) Description 08/23/2025 3:45 PM CDT Office [facility] - Neurology [facility] [facility] [place] [address] Luis Bahena MD [facility] [place] [address] 09/09/2025 3:45 PM SENIOR TAX ACCOUNTANT Office Visit [facility] Family Medicine [facility] [place] [address] Cem Hinojosa MD #[address] [place] [address] documented as of this encounter Visit Diagnoses Not on filedocumented in this encounter Additional Health Concerns Assessment Noted Time PHQ-9 Depression Total Score: 0 02/21/20 21 10:15 AM CDT documented as of this encounter Care Teams Logistics/Shipper Relationship Specialty Start Date End Date Cem Hinojosa MD #[address] [place] [address] PCP - General Family Medicine 12/31/17 Kajal Varma MD #[address] [place] [address] Gastroenterology 10/24/21 Luis Bahena MD #2 [place] [address] Consulting Physician Neurology 09/24/22 documented as of this encounter
--- OUTSIDE RECORDS SUMMARY | 2025-03-27 13:51 | XMS_ITS | Encounter Summary ---
Author Organization [facility] Address [address] [facility] [place] [address] Phone Care Team Providers Care Bleach Packer Name Role Phone Cem Hinojosa MD Primary Care Provider [phone] Kajal Varma MD Unavailable [phone] Luis Bahena MD Unavailable [phone] Encounter Details Date Type Department Care Team (Latest Contact Info) Description 10/20/2020 Transcribe [facility] [address] [place] [address] Shasha Slater MD [address] [place] [address] Angina pectoris (HCC) (Primary Dx); Encounter for preprocedural cardiovascular examination Social History Tobacco Use Types Packs/Day Years [...] have Coronavirus / COVID-19? No / Unsure 10/23/2020 9:24 AM OXYGEN THERAPY TEACHER documented as of this encounter Plan of Treatment Upcoming Encounters Date Type Department Care Team (Late st Contact Info) Description 08/23/2025 3:45 PM CDT Office Visit [facility] - Neurology [facility] [address] [place] [address] Luis Bahena MD [address]2 [place] [address] 09/09/2025 3:45 PM OXYGEN THERAPY TEACHER Office Visit [facility] - Family Medicine [facility] [address] [place] [address] Cem Hinojosa MD [address] [address] documented as of this encounter Results * PROTIME (PT) (PROTHROMBIN TIME) (10/23/2020 9:37 AM OXYGEN THERAPY TEACHER) PROTIME-PATIENT 13.5 11.6 - 14.8 sec 10/23/2020 11:11 AM OXYGEN THERAPY TEACHER [facility] INR 1.0 0.9 - 1.2 10/23/2020 11:11 AM OXYGEN THERAPY TEACHER [facility] Comment: Therapeutic Ranges INR = 2.0-3.0: Venous thromb, atrial fib, pul embolism, tissue heart valve, ami. INR = 2.5-3.5: Mechanical heart valve Critical value for INR is >/= 4.5 Blood Venipuncture / Unknown 10/23/2020 9:37 AM OXYGEN THERAPY TEACHER 10/23/2020 10:47 AM OXYGEN THERAPY TEACHER us Shasha Slater MD HEMATOLOGY ORDERABLES Louise l Result [facility] #1 [place] [address] * SARS-COV-2 BY MOLECULAR (10/23/2020 9:27 AM OXYGEN THERAPY TEACHER) SARSCOV2 NOT DETECTED (Referen ce Range for this test is Not Detected ) [facility] THERMOFISHER FAST DX 10/24/2020 1:56 AM OXYGEN THERAPY TEACHER [facility] Comment:This test was perfor med by a PCR method. Swab NASOPHARYNGEAL STRUCTURE / Unknown Non-Phlebotomy Collection / Unknown 10/23/2020 9:27 AM OXYGEN THERAPY TEACHER 10/23/2020 10:52 AM OXYGEN THERAPY TEACHER Narrative [facility] - 10/24/2020 1:56 AM OXYGEN THERAPY TEACHER Authorized Fact Sheets about this test for providers and patients are available at: https://www.fda.gov/medical-devices/hzdkhzfuo-livsknzkkv-jiugaly-devices/emergen -us e-authorizations us Shasha Slater MD MICROBIOLOGY - GENERAL ORD ERABLES Final Result Performing Organization Address City/State/[facility] Co de Phone Number [facility] [address] documented in this encounter Visit Diagnoses Diagnosis Angina pectoris- Primary Other and unspecified angina pectoris Encounter for preprocedural cardiovascular examination Pre-operative cardiovascular examination documented in this encounter Additional Health Concerns Infection Onset Date Last Indicated Resolved Time COVID - 19 Confirmed 10/14/2020 10/14/2020 020 12:18 AM OXYGEN THERAPY TEACHER Assessment Noted Time PHQ-9 Depression Total Score: 0 05/02/20 20 8:41 AM CDT documented as of this encounter Care Teams Bleach Packer Relationship Specialty Start Date End Date Cem Hinojosa MD [address] [address] PCP - General Family Medicine 12/31/17 Kajal Varma MD #[address] [address] Gastroenterology 10/24/21 Luis Bahena MD [address]2 [place] [address] Consulting Physician Neurology 09/24/22 documented as of this encounter
--- OUTSIDE RECORDS SUMMARY | 2025-03-27 13:51 | XMS_ITS | Encounter Summary ---
Author Organization [facility] Address [address] [facility] [place] [address] Phone Care Team Providers Care Outpatient Clerk Name Role Phone Cem Hinojosa MD Primary Care Provider [phone] Kajal Varma MD Unavailable [phone] Luis Bahena MD Unavailable [phone] Reason for Visit * Reason Comments Medication Refill Encounter Details Date Type Department Care Team (Late st Contact Info) Description 01/08/2024 Refill [facility] - Family Medicine [facility] #2 [place] [phone] Cem Hinojosa MD [address] [address] Medication Refill Social History Tobacco Use Types [...] Encounter - Ann Marie Jackman RN - 01/08/2024 10:05 AM CARCASS TRIMMER Medication failed the protocol, provider to review and approve the medication order if appropriate. Requested Prescriptions Pending Prescriptions Disp Refills rosuvastatin (CRESTOR) 5 MG Tablet [Pharmacy Med Name: ROSUVASTATIN TAB 5MG] 90 Tablet 3 Sig: TAKE 1 TABLET NIGHTLY Hmg CoA Reductase Inhibitors Protocol Failed - 01/08/2024 9:31 AM Failed - Lipid panel in past 12 months LDL Date Value Ref Range Status 02/08/2023 91 0 - 130 mg/dL Final Failed - CMP in past 12 months No results found for: SODIUM , POTASSIUM , CHLORIDE , CO2VEN , ANIONGAP , GLUCOSE , BUN , CREATININE , BCRATIO8 , TOTALPROTEIN , ALBUMIN , AGRT , AGRATIO , CALCIUM , TBIL , SGOTAST , SGPTALT , ALKALINEPHO , GFRNA , GFRA , GFRES , CMPREQFAST , CMPFAST Passed - Visit with relevant provider in past 12 months or upcoming 90 days Recent Visits Date Type Provider Dept 09/03/23 Office Visit Cem Hinojosa MD [facility] [place] 02/08/23 Office Visit Robbin Moralez APRN, WHEELCHAIR DRIVER [facility] Show[facility] recent visits within past 365 days and meeting all other requirements Future Appointments Date Type Provider Dept 03/02/24 Appointment Cem Hinojosa MD [facility] [place] Showing future appointments within next 90 days and meeting all other requirements ASS TRIMMER documented in this encounter Plan of Treatment Upcoming Encounters Date Type Department Care Team (Late st Contact Info) Description 08/23/2025 3:45 PM CDT Office Visit [facility] - [facility]rology - [place] [address] [place] [address] Luis Bahena MD #2 [place] [address] 09/09/2025 3:45 PM CARCASS TRIMMER Office Visit [facility] - Family [facility] #2 [place] [address] Cem Hinojosa MD [address] [address] [address] documented as of this encounter Visit Diagnoses Not on filedocumented in this encounter Additional Health Concerns Assessment Noted Time PHQ-9 Depression Total Score: 0 02/21/20 21 10:15 AM CDT documented as of this encounter Care Teams Outpatient Clerk Relationship Specialty Start Date End Date Cem Hinojosa MD [address] [address] PCP - General Family Medicine 12/31/17 Kajal Varma MD [address] [address] Gastroenterology 10/24/21 Luis Bahena MD [address]2 [place] [address] Consulting Physician Neurology 09/24/22 documented as of this encounter
--- OUTSIDE RECORDS SUMMARY | 2025-03-27 13:51 | XMS_ITS | Clinical Summary ---
Author Organization [facility] Address [address] [facility] [place] [address] Care Team Providers Care Typing Section Chief Name Role Phone Robbin Moralez APRN-SUPERVISOR EVAPORATOR Primary Care Pro vider Source Comments [facility],non-owned Affiliates and Associated Physician Practices is amultiple site organization consisting of ambulatory clinics and hospital sitesin [place], [place], [place] and [place]. This disclosure is being madepursuant to the Care Everywhere program and may not contain all information available regarding this patient. Last updated 18.[facility] Allergies No known active allergies Medications * Be aware that medications may not be up to date on this document. Alwaysverify current medications with the patient. carbidopa-levo dopa (SINEMET) 25-100 MG tablet Take 8 tablets by mouth once daily 7 Active cyanocobalamin (VITAMIN B-12) 500 MCG tablet 9 Active vitamin D, ergocalciferol , (DRISDOL) 69718 units capsule 9 Active hydrocortisone (HYTONE) 2.5 % cream 8 Active ketoconazole (NIZORAL) 2 % cream Apply to affected area once daily 8 Active rosuvastatin (CRESTOR) 10 MG tablet Take 10 mg by mouth once daily 9 Active tacrolimus (PROTOPIC) 0.1 % ointment Apply to affected area 2 times daily 9 Active ustekinumab (STELARA) 90 MG/ML prefilled syringe Inject 90 mg subcutaneously 9 Active fenofibrate micronized (LOFIBRA) 134 MG capsule 9 Active Active Problems Problem Noted Date Diagnosed Date Cervical radiculopathy Ulnar neuropathy at elbow, left Family History Medical History Relation Name Comments High Cholesterol Father Relation Name Status Comments Father Social History Tobacco Use Types Packs/Day Years Used Date Smoking Tobacco: Never Smokeless Tobacco: Never Alcohol Use Standard Drinks/Week Comments Never 0 (1 standard drink = 0.6 oz pur e alcohol) AUDIT-C Answer Date Recorded Frequency of Alcohol Consumption Never 07/01/2019 Average Number of Drinks Not on file 019 Frequency of Binge Drinking Not on file 06/05 Sex and Gender Information Value Date Recorded Sex Assigned at Not on file 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 Gender Identity Not on file Sexual Orientation Not on file Last Filed Vital Signs Vital Sign Reading Time Taken Comments Blood Pressure 112/65 09/22/2019 8:38 AM FIRE CONTROL SYSTEM INSTALLER Pulse 68 09/22/2019 8:38 AM FIRE CONTROL SYSTEM INSTALLER Temperature 36.7 C (98.1 F) 09/22/2019 8:38 AM FIRE CONTROL SYSTEM INSTALLER Respiratory Rate 18 09/22/2019 8:38 AM FIRE CONTROL SYSTEM INSTALLER Oxygen Saturation 96% 08/12/2019 9:05 AM CDT Inhaled Oxygen Concentration - - Weight 102.1 kg (225 lb) 08/12/2019 9:05 AM CDT Height 180.3 cm (5' 11 ) 08/12/2019 9:05 AM CDT Body Mass Index 31.38 08/12/2019 9:05 AM CDT Plan of Treatment Health Maintenance Due Date Last Done Comments COLOGUARD (AGES 45-75) - COLON CA SCREENING 1970 COLON MONITORING 1970 COLONOSCOPY - COLON CA SCREENING 1970 CT COLONOGRAPHY - COLON CA SCREENING 1970 Colorectal Cancer Screening 1970 FIT - COLON CA SCREENING 1970 FLEX SIG - COLON CA SCREENING 1970 HIV SCREENING 1985 HEPATITIS C SCREENING 08/05/1988 DTAP/TDAP/TD VACCINES (1 - Tdap) 1989 HEPATITIS B VACCINE (1 of 3 - 19+ 3-dose series) 1989 SCREENING FOR DIABETES 07/01/2019 PNEUMOCOCCAL VACCINE 50+ (1 of 1 - PCV) 2020 ZOSTER VACCINE (1 of 2) 2020 COVID-19 VACCINE (1 - 2023- season) 2024 DEPRESSION SCREENING 11/04/2024 INFLUENZA VACCINE (Season Ended) 2025 09/02/2018, 06/24/2017, 08/09/2016, Additional history exists HIB VACCINE Aged Out No longer eligi ble based on patient's age to complete this topic HPV VACCINE Aged Out No longer eligi ble based on patient's age to complete this topic MENINGOCOCCAL (Group B) VACCINE SHARED DECISION-MAKING Aged Out No longer eligible based on patient's age to complete this topic MENINGOCOCCAL GROUPS A/C/Y/W VACCINE Aged Out No longer eligible based on patient's age to complete this topic Insurance [facility] Care Teams Typing Section Chief Relationship Specialty Start Date End Date Robbin Moralez, IYMI-RADHA PCP - General 08/04/19
--- OUTSIDE RECORDS SUMMARY | 2025-03-27 13:51 | XMS_ITS | Encounter Summary ---
Author Organization [facility] Address [address] [facility] [place] [address] Phone Care Team Providers Care Pressure Washer Name Role Phone Cem Hinojosa MD Primary Care Provider [phone] Kajal Varma MD Unavailable [phone] Luis Bahena MD Unavailable Reason for Visit * Reason Comments Medication Refill Encounter Details Date Type Department Care Team (Late st Contact Info) Description 05/20/2022 Refill [facility] - Family Medicine [facility] #2 [place] [phone] Cem Hinojosa MD [address] [address] Medication Refill Social History Tobacco Use Types [...] Telephone Encounter - Lavern García RN - 05/21/2022 12:24 PM CDT Medication failed the protocol, provider to review and approve the medication order if appropriate. Requested Prescriptions Pending Prescriptions Disp Refills [facility] B-12 500 MCG Tablet [Pharmacy Med Name: [facility] VITAMIN B-12 500 MCG TAB] 90 Tablet 0 Sig: TAKE 1 TABLET BY MOUTH EVERY DAY Not Delegated - Off Protocol Failed - 05/20/2022 8:32 AM Failed - This refill cannot be delegated Passed - Visit with relevant provider in past 12 months or upcoming 90 days Recent Visits Date Type Provider Dept 04/03/22 Office Visit Cem Hinojosa MD [facility] 01/01/22 Office Visit Cem Hinojosa MD [facility] 09/25/21 Office Visit Robbin Moralez APRN, [facility] 05/26/21 Office Visit Robbin Moralez APRN, [facility] [place] Showing recent visits within past 365 days and meeting all other requirements Future Appointments Date Type Provider Dept 07/17/22 Appointment Cem Hinojosa MD [facility] [place] Showing future appointments within next 90 days and meeting all other requirements documented in this encounter Plan of Treatment Upcoming Encounters Date Type Department Care Team (Late st Contact Info) Description 08/23/2025 3:45 PM CDT Office Visit [facility] - Neurology - [place] [address]2 [place] [address] Luis Bahena MD #2 [place] [address] 09/09/2025 3:45 PM MAINTENANCE MECHANIC Office Visit [facility] - Family Medicine - [place] #2 [facility] [place] [address] Cem Hinojosa MD #[address] [address] documented as of this encounter Visit Diagnoses Not on filedocumented in this encounter Additional Health Concerns Assessment Noted Time PHQ-9 Depression Total Score: 0 02/21/20 21 10:15 AM CDT documented as of this encounter Care Teams Pressure Washer Relationship Specialty Start Date End Date Cme Hinojosa MD #[address] [address] PCP - General Family Medicine 12/31/17 Kajal Varma MD #[address] [address] Gastroenterology 10/24/21 Luis Bahena MD #2 [place] [address] Consulting Physician Neurology 09/24/22 documented as of this encounter
--- OUTSIDE RECORDS SUMMARY | 2025-03-27 13:51 | XMS_ITS | Encounter Summary ---
Author Organization [facility] Address [address] [facility] [place] [address] Phone Care Team Providers Care Display Card Writer Name Role Phone Cem Hinojosa MD Primary Care Provider [phone] Kajal Varma MD Unavailable [phone] Luis Bahena MD Unavailable Reason for Visit * Reason Comments Medication Refill Encounter Details Date Type Department Care Team (Late st Contact Info) Description 02/24/2023 Refill [facility] - Family Medicine [facility] #2 [place] [phone] Cem Hinojosa MD #[address] [address] Medication Refill Social History Tobacco Use Types [...] suspected to have Coronavirus/COVID-19? No / Unsure 02/08/2023 8:10 AM CDT documented as of this encounter Miscellaneous Notes * Telephone Encounter - Zayda Luis RN - 02/25/2023 9:51 AM CDT Medication failed the protocol, provider to review and approve the medication order if appropriate. Requested Prescriptions Pending Prescriptions Disp Refills Cyanocobalamin (B-12) 500 MCG Tablet [Pharmacy Med Name: B-12 500 MCG TABLET] 90 Tablet 1 Sig: TAKE 1 TABLET BY MOUTH EVERY DAY Not Delegated - Off Protocol Failed - 02/24/2023 8:21 AM Failed - This refill cannot be delegated Passed - Visit with relevant provider in past 12 months or upcoming 90 days Recent Visits Date Type Provider Dept 02/08/23 Office Visit Robibn Moralez APRN, CNP [facility] 07/17/22 Office Visit [facility]22 Office Visit Cem Hinojosa MD [facility] Showing recent visits within past 365 days and meeting all other requirements Future Appointments No visits were found meeting these conditions. Showing future appointments within next 90 days and meeting all other requirements documented in this encounter Plan of Treatment Upcoming Encounters Date Type Department Care Team (Late st Contact Info) Description 08/23/2025 3:45 PM CDT Office Visit [facility] - Neurology - [place] #2 [place] [address] Luis Bahena MD #2 [place] [address] 09/09/2025 3:45 PM PRIZE COORDINATOR Office Visit [facility] Family Medicine - [place] [facility] [place] [place] [address] Cem Hinojosa MD #[address] [address] documented as of this encounter Visit Diagnoses Not on filedocumented in this encounter Additional Health Concerns Assessment Noted Time PHQ-9 Depression Total Score: 0 02/21/20 21 10:15 AM CDT documented as of this encounter Care Teams Display Card Writer Relationship Specialty Start Date End Date Cem Hinojosa MD #[address] [address] PCP - General Family Medicine 12/31/17 Kajal Varma MD #[address] [address] Gastroenterology 10/24/21 Luis Bahena MD #2 [place] [address] Consulting Physician Neurology 09/24/22 documented as of this encounter
--- OUTSIDE RECORDS SUMMARY | 2025-03-27 13:51 | XMS_ITS | Clinical Summary ---
Author Organization [facility] Address [address] [place] [address] Care Team Providers Care Manager Export Name Role Phone Nik Horn DO Unavailable [phone] Cem Hinojosa MD Primary Care Provider [phone] Allergies No known active allergies Medications hydrocortisone (ANUSOL-HC) 25 mg suppository Insert 1 suppository (25 mg total) into the rectum 2 (two) times a day. 24 suppository 2 02/04/20 18 Active hydrocortisone 2.5 % creamIndication s:Candidal intertrigo Apply topically 2 (two) times a day as needed (Rash). Mixed with ketoconazole cream to buttocks 60 g 3 09/24/20 18 Active ketoconazole (NIZORAL) 2 % creamIndication s:Candidal intertrigo Apply topically daily. Mixed with hydrocortisone cream 60 g 3 09/24/20 18 Active rosuvastatin (CRESTOR) 10 mg tablet Take 1 tablet (10 mg total) by mouth daily Active tacrolimus (PROTOPIC) 0.1 % ointment Apply topically 2 (two) times a day Eyelids PRN 100 g 3 03/11/20 19 Active Additional Information Patient not taking.Reported on 03/04/2025 fenofibrate micronized (LOFIBRA) 134 mg capsule daily before breakfast 05/24/20 19 Active cyanocobalamin (Vitamin B-12) 500 mcg tablet Take 1 tablet (500 mcg total) by mouth daily Active Kennedy[employer]i-Gels 100 mg capsule TAKE 1 CAPSULE BY MOUTH TWICE DAILY NEEDED FOR CONSTIPATION. 30 capsule 03/10/20 20 Active Additional Information Patient not taking.Reported on 03/04/2025 sildenafiL (VIAGRA) 100 mg tablet Take 1 tablet (100 mg total) by mouth as needed 05/26/20 21 Active rosuvastatin (CRESTOR) 5 mg tablet 08/13/20 21 Active cholecalciferol (VITAMIN D-3) 400 unit capsule Take by mouth Active omeprazole (PriLOSEC) 40 mg capsule Take 1 capsule (40 mg total) by mouth daily 90 capsule 3 11/13/19 22 Active carbidopa-levod opa CR (SINEMET CR) 50-200 mg per CR tablet 06/18/20 23 Active eszopiclone (LUNESTA) 1 mg tablet Take 1 tablet (1 mg total) by mouth nightly as needed 03/25/20 23 Active Duopa 4.63-20 mg/mL intestinal pump suspension 08/07/20 23 Active zaleplon (SONATA) 10 mg capsule Take 1 capsule (10 mg total) by mouth nightly 09/23/20 24 Active Skyrizi 360 mg/2.4 mL (150 mg/mL) wearable injectorIndicat ions:Crohn's disease of small intestine without complication (HCC) INSERT 1 CARTRIDGE INTO ON-BODY INJECTOR AND INJECT 360 MG UNDER THE SKIN EVERY 8 WEEKS 2.4 mL 02/10/20 25 Active Active Problems Problem Noted Date Diagnosed Date PEG tube malfunction 09/29/2024 Abnormal finding on GI tract imaging 09/14/2024 Crohn's disease of colon without complication Overview (10/31/2021): Added automatically from request for surgery [id number] Parkinson's disease 10/31/2021 Overview (10/31/2021): Added automatically from request for surgery [id number] Steatohepatitis 12/13/2020 Overview (12/13/2020): Added automatically from request for surgery [id number] NAFLD (nonalcoholic fatty liver disease) 021 Dyslipidemia 11/18/2020 Right upper quadrant pain 11/18/2020 High risk medications (not anticoagulants) long- term use 10/18/2019 Crohn's disease with complication 09/15/2018 Overview (09/15/2018): Added automatically from request for surgery [id number] Crohn's disease of small intestine without compl ication 02/27/2018 Overview (07/23/2023): Year of diagnosis: 2016 Year symptoms began: 2017 Phenotype: Inflammatory (B1) with perianal disease. Distribution: ileocolonic (L3) without upper GI disease (L4). Extraintestinal manifestations: arthropathy Complications: anal fissure Prior treatments: mesalamine, steroids, Entyvio (rash), Humira Current treatment: Stelara (started 03/2019) Prior surgeries: none Endoscopies: Colonoscopy 09/2018 Perianal rash found on perianal exam. Congested, eroded, friable (with contact bleeding), granular, hemorrhagic, plaque covered and ulcerated mucosa in the mid ileum, in the distal ileum, in the terminal ileum and in the ileum, 50 cm from the ileocecal valve. The recto-sigmoid colon, transverse colon and ascending colon are normal. PATH: Small bowel, terminal ileum, biopsy Active ileitis with ulceration No granuloma, viral inclusions, or dysplasia, Large bowel, ascending colon, biopsy Unremarkable colonic mucosa, and submucosal lymphoid aggregates, no histopathologic abnormality, Large bowel, rectosigmoid, biopsy Colorectal mucosa with focal activity and mild glandular architectural disarray No basal lymphoplasmacytosis, Paneth cell metaplasia, granuloma, viral inclusions, or dysplasia Imaging: MRE 07/13/23 Similar-appearing persistent mild acute inflammation involving approximately 20 cm of terminal ileum with associated stricturing without evidence of upstream obstruction. MRE 07/2022 Persistent acute on chronic inflammation involving the distal and terminal ileum, similar in extent to the 07/29/2021 MRI with improved wall thickening which may indicate response to therapy. No evidence of bowel obstruction, penetrating disease or abscess. MRE 07/2021 Active inflammatory change involving approximately 20 cm long segment of distal and terminal ileum including small skipped lesion proximally, overall similar compared to MR dated 01/07/21. No bowel obstruction, penetrating disease or abscess. 2. No evidence of perianal disease. 3. Hepatic steatosis with mild periportal space widening, suggestive of fibrotic changes. MRE 01/2021 Significantly improved inflammatory changes involving an approximately 50 cm segment of the distal and terminal ileum compared to prior MR with mild active inflammatory changes on todays exam. MRE 05/2020 An approximately 50 cm length segment of the distal and terminal ileum demonstrates acute inflammatory changes on a background of chronic inflammatory changes compatible with the patient's known Crohn's disease. There is interval increased acute inflammation involving this segment compared to the prior study from 10/24/2019. MRE 10/2019Stable appearance of at least 25 cm of distal ileum with wall thickening and patchy enhancement consistent with active small bowel inflammation superimposed on finding of chronic Crohn's disease. MRE 05/2019 30 cm of patchy wall thickening with arterial enhancement of the distal ileum just proximal to the terminal ileum, extending to 2 cm proximal to the ileocecal valve. Finding is consistent with acute on chronic Crohn's disease. No fistulization IBD HE[employer]INTENANCE HBV vaccination status: Assessment & Plan (06/26/2019 4:32 PM CDT): Though the patient's imaging was concerning for some persistent inflammation in May this was before his 1st maintenance dose and as he is feeling much better on this medication, we would recommend that he continue it. At some point we will consider a repeat colonoscopy to verify mucosal healing. The patient is due for safety labs today and every 3 months Plan: 1. Continue Stelara 2. Safety labs today and every 3 months 3. Consider repeat colonoscopy at some point to verify mucosal healing Assessment & Plan (02/27/2018 1:51 PM CDT): Discussed findings of CT, colonoscopy, bx, and IBD panel and discussed treatment options. He desires to discuss with Dr Teague at [facility] and to begin prednisone now prior to consideration of a biologic. Will get appt at [facility], begin prednisone 40 and return 4 weeks, Anal fissure 02/03/2018 Assessment & Plan (06/26/2019 4:32 PM CDT): Patient is currently not having difficulty with with fissures but states that he has a bowel movement only once every 3 days. We would like him to try to incorporate Colace and or Benefiber to generate a softer more frequent stool without causing diarrhea. Assessment & Plan (02/03/2018 3:42 PM CDT): Will anusol HC Resolved Problems Problem Noted Date Diagnosed Date Resolved Date Healthcare maintenance 10/18/201911/[address] of the abdomen 02/03/2018 0 11/18/2020 Assessment & Plan (02/03/2018 3:39 PM CDT): Presented to ER with severe L paraspinal spasm and pain. CT suggested gallstone and thickening pf the TI suggestive of Crohn's disease. No crohn's sx. Suggested follow ER advisce of Lizeth for the pain and I suggested OTC TENS unit. He desires colonoscopy to answer the crohn's question. Encounters Date Type Department Care Team Description 03/17/[address] [facility] [address] [place] [address] [address] [place] [address] [place] [address] Abby Haines Case Management- Insurance 03/09/[address] [facility] [address] [place] [address] [address] [place] [address] [place] [address] Melissa Romero RN Treatment Plan Update (03/04/2025 rov) 03/04/2025 3:30 PM CDT Office Visit [facility] [address] [place] [address] [address] [place] [address] [place] [address] Jojo Geiger NP High risk medications (not anticoagulants) long-term use (Primary Dx); Crohn's disease of small intestine without complication (HCC); Parkinson's disease with dyskinesia, unspecified whether manifestations fluctuate (HCC) 02/09/[address] [facility] [address] [place] [address] [address] [place] [address] [place] [address] Kajal Varma MD High risk medications (not anticoagulants) long-term use (Primary Dx); Crohn's disease with complication, unspecified gastrointestinal tract location (HCC) from Last 3 Months Immunizations Immunization Administration Dates Next Due Hep A, Adult 03/30/2016,08/30/2015 Hep B Vaccine 08/09/2016,03/21/2016,08/30/2015 Influenza, Quadrivalent, Yolie l Culture-based MDCK, Preservative Free, Antibiotic Free, Intramuscular 09/29/2019 Influenza, Quadrivalent, Spl it, Preservative Free, Intramuscular 08/24/2020,09/02/2018,08/09/2016 Influenza, Trivalent, IM (MDV) 10/06/2019,2016,08/04/2011 Influenza, Trivalent, Preser vative Free, Intramuscular 08/30/2015 Pneumococcal Conjugate PCV 13 09/29/2019 Tdap 10/08/2015,08/30/2015 Surgical History Surgery Date Site/Laterality Comments FINGER AMPUTATION APPENDECTOMY CHOLECYSTECTOMY COLONOSCOPY UPPER GASTROINTESTINAL ENDOSCOPY Medical History Medical History Date Comments Parkinson disease (HCC) Parkinson's disease (HCC) Abdominal pain Parkinson disease (HCC) Crohn's disease (HCC) Crohn's disease with complic ation (HCC) 09/15/2018 Added automatically from [email or web address] for surgery [id number] Colon polyp Family History Medical History Relation Name Comments No Known Problems Brother Heart disease Father Family history of cardiac disorder - (Added by TW Conv) Hypertension Father Family history of hypertension - (Added by TW Conv) No Known Problems Father's Brother No Known Problems Father's Sister No Known Problems Maternal Grandfather No Known Problems Maternal Grandmother Heart disease Mother No Known Problems Mother's Brother No Known Problems Mother's Sister No Known Problems Paternal Grandfather No Known Problems Paternal Grandmother No Known Problems Sister Relation Name Status Comments Brother Father Father's Brother Father's Sister Maternal Grandfather Maternal Grandmother Mother Mother's Brother Mother's Sister Paternal Grandfather Paternal Grandmother Sister Social History Tobacco Use Types Packs/Day Years Used Date Smoking Tobacco: Never Smokeless Tobacco: Never Tobacco Cessation:Counseling Given: Not Answered Alcohol Use Standard Drinks/Week Comments No 0 (1 standard drink = 0.6 oz pur e alcohol) AUDIT-C Answer Date Recorded Q1: How often do you have a drink containing alcohol? Never 09/30/2024 Q2: How many drinks containi ng alcohol do you have on a typical day when you are drinking? Patient does not drink Q3: How often do you have si x or more drinks on one occasion? Never 09/30/2024 Personal Safety Answer Date Recorded Have you ever been in or are you currently in a harmful physical or emotional relationship or is someone making you feel afraid or unsafe? 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 Gender Identity Not on file Sexual Orientation Not on file Obstetrics History Last Filed Vital Signs Vital Sign Reading Time Taken Comments Blood Pressure 116/76 03/04/2025 3:20 PM CDT Pulse 69 03/04/2025 3:20 PM CDT Temperature 36.7 C (98.1 F) 03/04/2025 3:20 PM CDT Respiratory Rate 16 09/30/2024 4:25 PM NURSERY ATTENDANT Oxygen Saturation 94% 09/30/2024 4:25 PM NURSERY ATTENDANT Inhaled Oxygen Concentration - - Weight 106.6 kg (235 lb) 03/04/2025 3:20 PM CDT Height 180.3 cm (5' 11 ) 03/04/2025 3:20 PM CDT Body Mass Index 32.78 03/04/2025 3:20 PM CDT Plan of Treatment Health Maintenance Due Date Last Done Comments Depression Screening 1970 Prostate Cancer Screening-PSA 1970 Regular Well Visit/Exam 18-64 1988 Covid-19 Vaccine (3 - 2023-2 5 season) 2024 03/25/2021, 02/28/2021 Pneumococcal vaccine <65 (3 of 3 - PCV20 or PCV21) 09/29/2024 09/29/2019, 11/04/2005 Influenza Vaccine (Season Ended) 2025 09/09/2022, 09/25/2021, 08/24/2020, Additional history exists DTaP/Tdap/Td Vaccine (3 - Td or Tdap) 10/08/2025 10/08/2015, 08/30/2015 Colon Cancer Screening-Colonoscopy 08/15/2033 08/15/2023, 09/24/2018, 02/24/2018 Hepatitis C Screening Completed 10/24/2020 Zoster Vaccine Completed 11/10/2022, 09/09/2022 Medical Devices Implanted Type Area Used Car Salesperson Device Identifier Shelf Expiration Date Model / Serial / Lot Duopa Parkinson's Pump-12/28/2021 Abbvie J Implanted:2021 (Quantity not on file) Intrathecal Pain Pump Abdomen Description:This is an exter nal pump that can be (and must be) removed prior to MRI, leaving behind tubing only. Do not use the pump in the vicinity of magnetic resonance imaging (MRI) equipment as magnetic do may adversely affect the operation of the pump. Remove the pump from the patient during MRI procedures and keep it at a safe distance from magnetic energy. [email or web address] [email or web address]/[email or web address]#[email or web address] The AbbVie J (Intestinal Tube 9 FR for PEG 15 and 20 FR / [id number], [id number]) contains a small piece of metal in the tube tip for x-ray visibility of the tube. Non-clinical testing has demonstrated that the AbbVie J is MR Conditional. A patient with this device can be safely scanned in an MRI system meeting the following conditions: ? Static magnetic field of 1.5 Zeynep and 3.0 Zeynep only ? Maximum spatial gradient magnetic field of 1900 gauss/cm (19 T/m) ? Maximum MRI system reported, whole body averaged specific absorption rate (MIHAI) of 4.0 W/kg (First Level Controlled Mode). Under the scan conditions defined above, the AbbVie J Intestinal Tube is expected to produce a maximum temperature rise of 1.0 C after 15 minutes of continuous scanning. MR Artifact In non-clinical testing, the image artifact caused by the device extends approximately 42 mm from the tip of the AbbVie J Intestinal Tube when imaged with a spin echo pulse sequence and a 3.0 Zeynep MRI system. Similarly, the image artifact caused by the device extends approximately 37 mm from the tip of the AbbVie J Intestinal Tube when imaged with a spin echo pulse sequence and a 1.5 Zeynep MRI system. [email or web address] Procedures Procedure Name Priority Date/Time Associated Diagnosis Comments TB TEST, QUANTIFERON GOLD Routine 02/20/2025 7:33 AM CDT High risk medications (not anticoagulants) long-term use Crohn's disease with complication, unspecified gastrointestinal tract location (HCC) CRP (ACUTE PHASE) Routine 02/20/2025 7:3 3 AM CDT High risk medications (not anticoagulants) long-term use Crohn's disease with complication, unspecified gastrointestinal tract location (HCC) COMPREHENSIVE METABOLIC PANEL Routine 02/20/2025 7:33 AM CDT High risk medications (not anticoagulants) long-term use Crohn's disease with complication, unspecified gastrointestinal tract location (HCC) CBC WITH AUTO DIFFERENTIAL Routine 02/20/2025 7:33 AM CDT High risk medications (not anticoagulants) long-term use Crohn's disease with complication, unspecified gastrointestinal tract location (HCC) COLONOSCOPY 08/15/2023 10:13 AM CDT HEPATITIS C ANTIBODY Routine 10/24/2020 8:15 AM NURSERY ATTENDANT Non-alcoholic fatty liver disease from Last 3 Months or Most Recently Relevant to Health Maintenance Results * TB test, quantiferon gold (02/20/2025 7:33 AM CDT) [facility] QuantiFERON(R)-T B Gold Plus, 1 Tube NEGATIVE NEGATIVE [facility] Comment: Negative test result. M. tuberculosis complex infection unlikely. NIL 0.01 IU/mL [facility] MITOGEN-NIL 6.62 IU/mL [facility] TB1-NIL 0.01 IU/mL [facility] TB2-NIL 0.01 IU/mL [facility] Comment: The Nil tube value reflects the background interferon gamma immune response of the patient's blood sample. This value has been subtracted from the patient's displayed TB and Mitogen results. Lower than expected results with the Mitogen tube prevent false-negative Quantiferon readings by detecting a patient with a potential immune suppressive condition and/or suboptimal pre-analytical specimen handling. The TB1 Antigen tube is coated with the M. tuberculosis-specific antigens designed to elicit responses from TB antigen primed CD4+ helper T-lymphocytes. The TB2 Antigen tube is coated with the M. tuberculosis-specific antigens designed to elicit responses from TB antigen primed CD4+ helper and CD8+ cytotoxic T-lymphocytes. For additional information, please refer to https://education.[employer].FastCAP/faq/YSK868 (This link is being provided for informational/ educational purposes only.) Blood 02/20/2025 7:33 AM CDT 02/20/2025 7:34 AM CDT Narrative [facility] - 02/24/2025 12:58 PM CDT FASTING:YES FASTING: YES Kajal Varma MD LAB BLOOD ORDERABLES Final Re sult [facility] [address] [facility] [place] [address] * CBC with auto differential (02/20/2025 7:33 AM CDT) WBC 6.3 3.8 - 10.8 Thousand/u L [facility] RBC, POC 5.04 4.20 - 5.80 Million/uL [facility] Hgb 15.1 13.2 - 17.1 g/dL [facility] Hct 45.4 38.5 - 50.0 % [facility] MCV 90.1 80.0 - 100.0 fL [facility] MCH 30.0 27.0 - 33.0 pg [facility] MCHC 33.3 32.0 - 36.0 g/dL [facility] Comment: For adults, a slight decrease in the calculated MCHC value (in the range of 30 to 32 g/dL) is most likely not clinically significant; however, it should be interpreted with caution in correlation with other red cell parameters and the patient's clinical condition. Rdw 12.6 11.0 - 15.0 % [facility] Platelets 286 140 - 400 Thousand/u L [facility] MPV 9.2 7.5 - 12.5 fL [facility] Neutrophils, abs 4,196 1,500 - 7,800 cells/uL [facility] Lymphocytes, abs 1,260 850 - 3,900 cells/uL [facility] Monocyte abs 699 200 - 950 cells/uL [facility] Eosinophils, abs 107 15 - 500 cells/uL [facility] Basophils, abs 38 0 - 200 cells/uL [facility] Neutrophils 66.6 % [facility] Lymphocyte pct 20.0 % [facility] Monocytes 11.1 % [facility] Eosinophils 1.7 % [facility] Basophils 0.6 % [facility] Blood 02/20/2025 7:33 AM CDT 02/20/2025 7:34 AM CDT Narrative [facility] - 02/24/2025 12:58 PM CDT FASTING:YES FASTING: YES Kajal Varma MD LAB BLOOD ORDERABLES Final Re sult Performing Organization Address [facility] Co de Phone Number [facility] [address] [place] [address] * CRP (acute phase) (02/20/2025 7:33 AM CDT) Pathologist [facility] C-RP <3.0 <8.0 mg/L [facility] Blood 02/20/2025 7:33 AM CDT 02/20/2025 7:34 AM CDT Narrative [facility] - 02/24/2025 12:58 PM CDT FASTING:YES FASTING: YES Kajal Varma MD LAB BLOOD ORDERABLES Final Re sult Performing Organization Address [facility] Co de Phone Number [facility] [address] [place] [address] * Comprehensive metabolic panel (02/20/2025 7:33 AM CDT) Pathologist [facility] Glucose 94 65 - 99 mg/dL [facility] Comment: Fasting reference interval BUN 13 7 - 25 mg/dL [facility] Creatinine 1.14 0.70 - 1.30 mg/dL [facility] eGFR 76 > OR = 60 mL/min/1.7 3m2 [facility] BUN/creat ratio SEE NOTE: 6 (calc) [facility] Comment: Not Reported: BUN and Creatinine are within reference range. Sodium 136 135 - 146 mmol/L [facility] Potassium, pl 3.9 3.5 - 5.3 mmol/L [facility] Chloride 102 98 - 110 mmol/L [facility] CO2 26 20 - 32 mmol/L [facility] Calcium 9.2 8.6 - 10.3 mg/dL [facility] Protein, sr 7.1 6.1 - 8.1 g/dL [facility] Albumin 4.6 3.6 - 5.1 g/dL [facility] GLOBULIN 2.5 1.9 - 3.7 g/dL (calc) [facility] Alb/glob ratio 1.8 1.0 - 2.5 (calc) [facility] Bilirubin, total 0.9 0.2 - 1.2 mg/dL [facility] Alk phos 37 35 - 144 U/L [facility] AST 27 10 - 35 U/L [facility] ALT (SGPT) 17 9 - 46 U/L [facility] Blood 02/20/2025 7:33 AM CDT 02/20/2025 7:34 AM CDT Narrative [facility] - 02/24/2025 12:58 PM CDT FASTING:YES FASTING: YES Kajal Varma MD LAB BLOOD ORDERABLES Final Re sult [facility] [id number] [facility] [place] [address] * COLONOSCOPY (08/15/2023 10:13 AM CDT) Anatomical Region Laterality Modality Other Narrative Procedure Note Kajal Varma MD - 08/15/2023 10:13 AM CDT [facility] Patient Name: Morgan Barahona Procedure Date: 08/15/2023 10:13AM Date of : 1970 Admit Type: Outpatient Age: 53 Gender: Male Attending MD: Kajal Varma M.D. Room: [facility] ENDOSCOPY ROOM 8 Note Status: Laboratory Chemist Override Procedure: Colonoscopy Indications: Disease activity assessment of Crohn's disease ofthe small bowel, Assess therapeutic response to therapyof Crohn's disease of the small bowel Referring MD: Cem Hinojosa M.D. Providers: Kajal Varma M.D. Medicines: Monitored Anesthesia Care Complications: No immediate complications. Estimated blood loss: Minimal. Estimated Blood Loss: Estimated blood loss was minimal. Procedure: Pre-Anesthesia Assessment: - Immediately prior to administration ofmedications, the patient was re-assessed for adequacy to receive sedatives. - The risks and benefits of the procedure and the sedation options and risks were discussed with the patient. All questions were answered and informed consent was obtained. The benefits, risks and alternatives of theprocedure and sedation were discussed and informed consentwas obtained. All questions were answered. Please referto the signed informed consent document in the medical record. The scope was passed under direct vision.The [id number] endoscope was introduced through the anus and advanced to 10 cm into the ileum. The colonoscopy was performed without difficulty. The patient tolerated the procedure well. The qualityof the bowel preparation was fair. The bowelpreparation used was Miralax via single dose instruction. Findings: The perianal and digital rectal examinations were normal. The Simple Endoscopic Score for Crohn's Disease was determined basedon the endoscopic appearance of the mucosa in the following segments: - Ileum: Findings include large ulcers 0.5-2 cm in size, less than10% ulcerated surfaces, 50-75% of surfaces affected and no narrowings. Segment score: 5. - Right Colon: Findings include no ulcers present, no ulcerated surfaces, no affected surfaces and no narrowings. Segment score: 0. - Transverse Colon: Findings include no ulcers present, no ulcerated surfaces, no affected surfaces and no narrowings. Segment score: 0. - Left Colon: Findings include no ulcers present, no ulceratedsurfaces, no affected surfaces and no narrowings. Segment score: 0. - Rectum: Findings include no ulcers present, no ulcerated surfaces,no affected surfaces and no narrowings. Segment score: 0. - Total SES-CD aggregate score: 5. Biopsies were taken with a cold forceps for histology. A 15 mm polyp was found in the transverse colon. The polyp wassessile. The polyp was removed with a hot snare. Resection and retrieval were complete. To prevent bleeding post-intervention, three hemostaticclips were successfully placed (MR conditional). Clip palliative care coordinator: AppZero. There was no bleeding at the end of the procedure. A 2 mm polyp was found in the rectum. The polyp was sessile. Thepolyp was removed with a cold biopsy forceps. Resection and retrieval were complete. The retroflexed view of the distal rectum and anal verge was normaland showed no anal or rectal abnormalities. Impression: - Preparation of the colon was fair. - Simple Endoscopic Score for Crohn's Disease: 5, mucosal inflammatory changes secondary to Crohn's disease with ileitis. Biopsied. - One 15 mm polyp in the transverse colon, removed with a hot snare. Resected and retrieved. Clips (MR conditional) were placed. Clip palliative care coordinator: AppZero. - One 2 mm polyp in the rectum, removed with a cold biopsy forceps. Resected and retrieved. - The distal rectum and anal verge are normal on retroflexion view. Recommendation: - Await pathology results. 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 Electronically signed by Kajal Varma MD Kajal Varma M.D. 08/15/2023 11:28:24 AM . Number of Addenda: 0 Note Initiated On: 08/15/2023 10:13 AM Recognized by the [employer] for promoting quality in endoscopy us Kajal Varma MD ENDOSCOPY PROCEDURES Edited R esult - Final * Hepatitis C antibody (10/24/2020 8:15 AM NURSERY ATTENDANT) Hep C Ab Nonreactive Nonreactive JOEL RAMON Comment:Antibodies to HCV no t detected. Does NOT exclude the possibility of recent exposure to HCV. Blood specimen (specimen) 10/24/2020 8:15 AM NURSERY ATTENDANT 10/24/2020 8:44 AM NURSERY ATTENDANT Kodi Maloney MD LAB MICROBIOLOGY - GENER AL ORDERABLES Edited Result - Final [facility] [place] [address] from Last 3 Months or Most Recently Relevant to Health Maintenance Insurance [employer] [facility] OPEN ACCESS [facility] PPO ANTHEM ACCESS CHOICE Member Subscriber Plan / Payer (Ef fective 2019-Present) Name:Morgan Barahona Randall Relation to Subscriber:Self Name:Morgan Barahona Randall Payer ID:[id number] ([facility]) Type:[employer] Address: [address] [employer]ICE [employer] [address] [place] [address] ANTHEM ACCESS CHOICE ANTHEM ACCESS CHOICE [place] Advance Directives For more information, please contact: [phone] * Full Code (Latest Code Status on File) Date Activated Date Inactivated Comments 09/30/2024 1:30 PM 09/30/2024 9:11 PM * Full Code Date Activated Date Inactivated Comments 09/29/2024 12:32 PM 09/29/2024 7:26 PM * Full Code Date Activated Date Inactivated Comments 08/15/2023 9:09 AM 08/15/2023 4:15 PM * Full Code Date Activated Date Inactivated Comments 12/28/2021 8:27 AM 12/28/2021 3:39 PM * Full Code Date Activated Date Inactivated Comments 11/13/2021 7:36 AM 11/13/2021 2:40 PM Care Teams Manager Export Relationship Specialty Start Date End Date Cem Hinojosa MD [address] [address] PCP - General 03/04/18 Nik Horn DO [address] [address] 08/16/17
--- OUTSIDE RECORDS SUMMARY | 2025-03-27 13:51 | XMS_ITS | Encounter Summary ---
Author Organization [facility] Address [address] [facility] [place] [address] Phone Care Team Providers Care Automotive Glass Technician Name Role Phone Cem Hinojosa MD Primary Care Provider [phone] Kajal Varma MD Unavailable [phone] Luis Bahena MD Unavailable [phone] Reason for Visit * Reason Comments Medication Refill Encounter Details Date Type Department Care Team (Late st Contact Info) Description 06/23/2023 Refill [facility] #2 [place] [phone] Cem Hinojosa MD [address] [address] Medication Refill Social History Tobacco Use Types [...] Telephone Encounter - Lavern García RN - 06/24/2023 12:26 PM CDT PRN medication requires review from provider Per nursing clinical judgement, provider to review and approve the medication(s) order(s) if appropriate. Requested Prescriptions Pending Prescriptions Disp Refills sildenafil citrate (VIAGRA) 100 MG Tablet [Pharmacy Med Name: Sildenafil Citrate 100 MG Oral Tablet] 10 Tablet 0 Sig: TAKE 1 TABLET BY MOUTH NEEDED FOR ERECTILE DYSFUNCTION Erectile Dysfunction Medication Protocol Passed - 06/23/2023 3:51 PM Passed - Visit with relevant provider in past 12 months or upcoming 90 days Recent Visits Date Type Provider Dept 02/08/23 Office Visit Robbin Moralez APRN, CNP [facility] 07/17/22 Office Visit Cem Hinojosa MD [facility] Showing recent visits within past 365 days and meeting all other requirements Future Appointments Date Type Provider Dept 09/03/23 Appointment [facility] Showing future appointments within next 90 days and meeting all other requirements Passed - Absence of nitrates on med list Passed - Erectile dysfunction on problem list documented in this encounter Plan of Treatment Upcoming Encounters Date Type Department Care Team (Late st Contact Info) Description 08/23/2025 3:45 PM CDT Office Visit [facility] Medical [facility] - Neurology - [place] #2 [place] [address] Luis Bahena MD #2 [place] [address] 09/09/2025 3:45 PM APPRENTICE COSMETOLOGIST Office Visit [facility] Medical [facility] - Family Medicine [facility] [address]2 [place] [address] Cem Hinojosa MD #[address] [address] documented as of this encounter Visit Diagnoses Diagnosis Erectile dysfunction, unspecified erectile dysfunction type documented in this encounter Additional Health Concerns Assessment Noted Time PHQ-9 Depression Total Score: 0 02/21/20 21 10:15 AM CDT documented as of this encounter Care Teams Automotive Glass Technician Relationship Specialty Start Date End Date Cem Hinojosa MD #2 [facility] [address] [place] [address] PCP - General Family Medicine 12/31/17 Kajal Varma MD #[address] [address] Gastroenterology 10/24/21 Luis Bahena MD #2 [place] [address] Consulting Physician Neurology 09/24/22 documented as of this encounter
--- OUTSIDE RECORDS SUMMARY | 2025-03-27 13:51 | XMS_ITS | Encounter Summary ---
Author Organization [facility] Address [address] [facility] [place] [address] Phone Care Team Providers Care V Belt Inspector Name Role Phone Cem Hinojosa MD Primary Care Provider [phone] Kajal Varma MD Unavailable [phone] Luis Bahena MD Unavailable [phone] Encounter Details Date Type Department Care Team (Latest Contact Info) Description 10/10/2020 [facility] 1 [place] [address] Shasha Slater MD [address] [place] [address] Angina pectoris, unspecified (HCC) (Primary Dx); Encounter for preprocedural cardiovascular [...] have Coronavirus / COVID-19? No / Unsure 10/04/2020 7:27 AM VARNISH BLENDER documented as of this encounter Plan of Treatment Upcoming Encounters Date Type Department Care Team (Late st Contact Info) Description 08/23/2025 3:45 PM CDT [facility] #2 [place] [address] Luis Bahena MD #2 [place] [address] 09/09/2025 3:45 PM VARNISH BLENDER Office Visit [facility] Medical [facility] Family Medicine [facility] #2 [place] [address] Cem Hinojosa MD #[address] [address] documented as of this encounter Visit Diagnoses Diagnosis Angina pectoris, unspecified- Primary Encounter for preprocedural cardiovascular examination Pre-operative cardiovascular examination documented in this encounter Additional Health Concerns Infection Onset Date Last Indicated Resolved Time COVID - 19 Confirmed 10/14/2020 10/14/2020 020 12:18 AM VARNISH BLENDER Assessment Noted Time PHQ-9 Depression Total Score: 0 05/02/20 20 8:41 AM CDT documented as of this encounter Care Teams V Belt Inspector Relationship Specialty Start Date End Date Cem Hinojosa MD #[address] [address] PCP - General Family Medicine 12/31/17 Kajal Varma MD #[address] [address] Gastroenterology 10/24/21 Luis Bahena MD #2 [place] [address] Consulting Physician Neurology 09/24/22 documented as of this encounter
--- OUTSIDE RECORDS SUMMARY | 2025-03-27 13:51 | XMS_ITS | Encounter Summary ---
Author Organization [facility] Address [address] [facility] [place] [address] Phone Care Team Providers Care Employee Relations Specialist Name Role Phone Cem Hinojosa MD Primary Care Provider [phone] Kajal Varma MD Unavailable [phone] Luis Bahena MD Unavailable Reason for Visit * Reason Comments Medication Refill Encounter Details Date Type Department Care Team (Late st Contact Info) Description 10/21/2023 Refill [facility] #2 [place] [address] Luis Bahena MD #2 [place] [address] Medication Refill Social History Tobacco [...] encounter Miscellaneous Notes * Telephone Encounter - Svetlana Vallecillo RN - 10/22/2023 8:21 AM CST Medication failed the protocol, provider to review and approve the medication order if appropriate. Requested Prescriptions Pending Prescriptions Disp Refills Carbidopa-Levodopa (Duopa) 4.63-20 MG/ML Suspension [Pharmacy Med Name: DUOPA (100ML X 7) 4.63-20MG/] 2800 mL 11 Sig: ADMINISTER CONTENTS OF ONE DUOPA CASSETTE VIA PEG-J FOR UP TO 16 HOURS EACH DAY. MORNING DOSE:12ML (LOCKOUT TIME OF 20 HRS), CONTINUOUS DOSE: 3.3 ML/HR, EXTRA DOSE:5 ML (LOCKOUT TIME OF 2 HRS) Antiparkinson Dopaminergics and COMT Protocol Passed - 10/21/2023 4:05 PM Passed - Visit with relevant provider in the past 9 months or upcoming 90 days Recent Visits Date Type Provider Dept 09/03/23 Office Visit Cem Hinojosa MD [facility] 07/01/23 Office Visit Luis Bahena MD [facility] 03/25/23 Office Visit Luis Bahena MD [facility] 02/08/23 Office Visit Robbin Moralez APRN, CNP [facility] Showing recent visits within past 270 days and meeting all other requirements Future Appointments No visits were found meeting these conditions. Showing future appointments within next 90 days and meeting all other requirements Passed - Blood pressure on record in past 12 months Clinician-entered: BP Readings from Last 3 Encounters: 09/03/23 122/72 07/01/23 126/80 03/25/23 122/70 Patient-entered: No data recorded ING SERVICES OFFICER * Telephone Encounter - Svetlana Vallecillo RN - 10/22/2023 8:20 AM CST Medication(s) [facility] and [facility] Medication Refill Standing Order for Pediatricand Adult Patients. Requested Prescriptions Pending Prescriptions Disp Refills ??? Carbidopa-Levodopa (Duopa) 4.63-20 MG/ML Suspension [Pharmacy Med Name: DUOPA (100ML X 7) 4.63-20MG/] 11 Sig: ADMINISTER CONTENTS OF ONE DUOPA CASSETTE VIA PEG-J FOR UP TO 16 HOURS EACH DAY. MORNING DOSE:12ML (LOCKOUT TIME OF 20 HRS), CONTINUOUS DOSE: 3.3 ML/HR, EXTRA DOSE:5 ML (LOCKOUT TIME OF 2 HRS) Antiparkinson Dopaminergics and COMT Protocol Passed - 10/21/2023 4:05 PM Passed - Visit with relevant provider in the past 9 months or upcoming 90 days Recent Visits Date Type Provider Dept 09/03/23 Office Visit Cem Hinojosa MD [facility] 07/01/23 Office Visit Luis Bahena MD [facility] 03/25/23 Office Visit Luis Bahena MD [facility] 02/08/23 Office Visit Robbin Moralez APRN, RADHA [facility] Showing recent visits within past 270 days and meeting all other requirements Future Appointments No visits were found meeting these conditions. Showing future appointments within next 90 days and meeting all other requirements Passed - Blood pressure on record in past 12 months Clinician-entered: BP Readings from Last 3 Encounters: 09/03/23 122/72 07/01/23 126/80 03/25/23 122/70 Patient-entered: No data recorded ING SERVICES OFFICER * Telephone Encounter - Svetlana Vallecillo RN - 10/22/2023 8:19 AM CST Medication(s) refilled and signed per [facility] Medication Refill Standing Order for Pediatricand Adult Patients. Requested Prescriptions Pending Prescriptions Disp Refills ??? Carbidopa-Levodopa (Duopa) 4.63-20 MG/ML Suspension [Pharmacy Med Name: DUOPA (100ML X 7) 4.63-20MG/] 11 Sig: ADMINISTER CONTENTS OF ONE DUOPA CASSETTE VIA PEG-J FOR UP TO 16 HOURS EACH DAY. MORNING DOSE:12ML (LOCKOUT TIME OF 20 HRS), CONTINUOUS DOSE: 3.3 ML/HR, EXTRA DOSE:5 ML (LOCKOUT TIME OF 2 HRS) Antiparkinson Dopaminergics and COMT Protocol Passed - 10/21/2023 4:05 PM Passed - Visit with relevant provider in the past 9 months or upcoming 90 days Recent Visits Date Type Provider Dept 09/03/23 Office Visit Cem Hinojosa MD [facility] 07/01/23 Office Visit Luis Bahena MD [facility] 03/25/23 Office Visit Luis Bahena MD [facility] 02/08/23 Office Visit Robbin Moralez APRN, FIBER [employer] CENTRAL OFFICE INSTALLER [facility] Showing recent visits within past 270 days and meeting all other requirements Future Appointments No visits were found meeting these conditions. Showing future appointments within next 90 days and meeting all other requirements Passed - Blood pressure on record in past 12 months Clinician-entered: BP Readings from Last 3 Encounters: 09/03/23 122/72 07/01/23 126/80 03/25/23 122/70 Patient-entered: No data recorded ING SERVICES OFFICER documented in this encounter Plan of Treatment Upcoming Encounters Date Type Department Care Team (Late st Contact Info) Description 08/23/2025 3:45 PM CDT Office Visit [facility] Neurology [facility] #2 [place] [address] Luis Bahena MD #2 [place] [address] 09/09/2025 3:45 PM BANKING SERVICES OFFICER Office Visit [facility] Family Medicine [facility] #2 [place] [address] Cem Hinojosa MD #[address] [address] documented as of this encounter Visit Diagnoses Diagnosis Parkinson's disease with dyskinesia and fluctuating manifestations (HCC)- Primary documented in this encounter Additional Health Concerns Assessment Noted Time PHQ-9 Depression Total Score: 0 02/21/20 21 10:15 AM CDT documented as of this encounter Care Teams Employee Relations Specialist Relationship Specialty Start Date End Date Cem Hinojosa MD #[address] [address] PCP - General Family Medicine 12/31/17 Kajal Varma MD #[address] [address] Gastroenterology 10/24/21 Luis Bahena MD #2 [place] [address] Consulting Physician Neurology 09/24/22 documented as of this encounter
--- OUTSIDE RECORDS SUMMARY | 2025-03-27 13:51 | XMS_ITS | Encounter Summary ---
Author Organization [facility] Address [address] [place] [address] Phone Care Team Providers Care Electronic Typesetting Machine Operator Name Role Phone Cem Hinojosa MD Primary Care Provider [phone] Kajal Varma MD Unavailable [phone] Luis Bahena MD Unavailable [phone] Reason for Visit * Reason Comments Medication Refill Encounter Details Date Type Department Care Team (Late st Contact Info) Description 10/21/2020 Refill [facility] #2 [place] [address] Robbin Moralez, ACTIVE DIRECTORY ADMINISTRATOR, WINDOW CASER [address] [address] Medication Refill Social History Tobacco Use Types [...] COVID-19? No / Unsure 10/23/2020 9:24 AM COMMERCIAL REAL ESTATE LENDER documented as of this encounter Miscellaneous Notes * Telephone Encounter - Sandy Cavanaugh RN - 10/22/2020 11:01 PM CST Medication failed the protocol, provider to review and approve the medication order if appropriate.Sending for review per nursing clinical judgement. See override message. Requested Prescriptions Pending Prescriptions Disp Refills Fenofibrate Micronized 134 MG Capsule [Pharmacy Med Name: FENOFIBRATE CAPS 134MG] 90 Cap 3 Sig: TAKE 1 CAPSULE DAILY Cardiovascular: Antilipid - Fibric Acid Derivatives Passed - 10/21/2020 11:24 PM Passed - Valid encounter within last 12 months Past Office Visits Recent Outpatient Visits 4 days ago Hypokalemia [facility] Cem Hernandez MD 1 month ago Right-sided chest wall pain [facility] Cem Hernandez MD 5 months ago Dyslipidemia [facility] Cem Hernandez MD 1 year ago Dyslipidemia [facility] - Robbin Davis APN, WINDOW CASER 1 year ago Neural foraminal stenosis of cervical spine [facility] Robbin Davis APN, WINDOW CASER Upcoming Appointments Future Appointments In 3 days [facility]; [facility]2 [facility] Ultrasound, [facility] In 3 days [facility]1 [facility] CT, [facility] In 1 week Cem Hinojosa MD [facility] Family Medicine [facility] In 4 months Luis Bahena MD [facility] Neurology [facility], [facility] RACE BOARD ATTENDANT - Recent and Past Visits Recent Visits Date Type Provider Dept 10/18/20 Office Visit Cem Hinojosa MD [facility] 08/24/20 Office Visit Cem Hinojosa MD [facility] 05/02/20 Office Visit Cem Hinojosa MD [facility] 10/20/19 Office Visit Robbin Moralez APN, WINDOW CASER [facility] Showing recent visits within past 460 days with a meds authorizing provider and meeting all other requirements Future Appointments Date Type Provider Dept 10/31/20 [address]em H[address] [facility] Showing future appointments within next 90 days with a meds authorizing provider and meeting all other requirements ERCIAL REAL ESTATE LENDER documented in this encounter Plan of Treatment Upcoming Encounters Date Type Department Care Team (Late st Contact Info) Description 08/23/2025 3:45 PM CDT Office Visit [facility] - Neurology [facility] #2 [place] [address] Luis Bahena MD #2 [place] [address] 09/09/2025 3:45 PM COMMERCIAL REAL ESTATE LENDER Office Visit [facility] Medical [facility] - Family Medicine [facility] #2 [place] [address] Cem Hinojosa MD #[address] [address] documented as of this encounter Visit Diagnoses Diagnosis Dyslipidemia Other and unspecified hyperlipidemia documented in this encounter Additional Health Concerns Infection Onset Date Last Indicated Resolved Time COVID - 19 Confirmed 10/14/2020 10/14/2020 020 12:18 AM COMMERCIAL REAL ESTATE LENDER Assessment Noted Time PHQ-9 Depression Total Score: 0 05/02/20 20 8:41 AM CDT documented as of this encounter Care Teams Electronic Typesetting Machine Operator Relationship Specialty Start Date End Date Cem Hinojosa MD #[address] [address] PCP - General Family Medicine 12/31/17 Kajal Varma MD #[address] [address] Gastroenterology 10/24/21 Luis Bahena MD #2 [place] [address] Consulting Physician Neurology 09/24/22 documented as of this encounter
--- OUTSIDE RECORDS SUMMARY | 2025-03-27 13:51 | XMS_ITS | Encounter Summary ---
Author Organization [facility] Address [address] [facility] [place] [address] Phone Care Team Providers Care Photonics Technician Name Role Phone Cem Hinojosa MD Primary Care Provider [phone] Kajal Varma MD Unavailable [phone] Luis Bahena MD Unavailable Reason for Visit * Reason Comments Medication Refill Encounter Details Date Type Department Care Team (Late st Contact Info) Description 04/26/2024 Refill [facility] #2 [place] [address] Cem Hinojosa MD #[address] [address] Medication Refill Social History Tobacco Use Types [...] encounter Miscellaneous Notes * Telephone Encounter - Magda Suárez RN - 04/27/2024 1:24 PM CDT Medication(s) [facility] Med[facility] Refill Standing Order for Pediatricand Adult Patients. Requested Prescriptions Pending Prescriptions Disp Refills carbidopa-levodopa (SINEMET) 25-100 MG Tablet [Pharmacy Med Name: CARBIDOPA- LEVODOPA 25-100 TAB] 90Tablet 0 Sig: Take 1 Tablet by mouth nightly. 1/2 hour before eating Antiparkinson Dopaminergics and COMT Protocol Passed - 04/26/2024 6:59 AM Passed - Visit with relevant provider in the past 9 months or upcoming 90 days Recent Visits Date Type Provider Dept 03/02/24 Office Visit Cem Hinojosa MD [facility] 01/30/24 Office Visit Luis Bahena MD [facility] Neurology [facility] 09/03/23 Office Visit Cem Hinojosa MD [facility] Showing recent visits within past 270 days and meeting all other requirements Future Appointments No visits were found meeting these conditions. Showing future appointments within next 90 days and meeting all other requirements Passed - Blood pressure on record in past 12 months Clinician-entered: BP Readings from Last 3 Encounters: 03/02/24 120/70 01/30/24 130/80 09/03/23 122/72 Patient-entered: No data recorded documented in this encounter Plan of Treatment Upcoming Encounters Date Type Department Care Team (Late st Contact Info) Description 08/23/2025 3:45 PM CDT Office Visit [facility] - Neurology - [place] #2 [place] [address] Luis Bahena MD #2 [place] [address] 09/09/2025 3:45 PM ADMINISTRATIVE PROCESSOR Office Visit [facility] #2 [place] [address] Cem Hinojosa MD [address] [address] documented as of this encounter Visit Diagnoses Not on filedocumented in this encounter Additional Health Concerns Assessment Noted Time PHQ-9 Depression Total Score: 0 02/21/20 21 10:15 AM CDT documented as of this encounter Care Teams Photonics Technician Relationship Specialty Start Date End Date Cem Hinojosa MD [address] [address] PCP - General Family Medicine 12/31/17 Kajal Varma MD #[address] [address] Gastroenterology 10/24/21 Luis Bahena MD #2 [place] [address] Consulting Physician Neurology 09/24/22 documented as of this encounter
--- OUTSIDE RECORDS SUMMARY | 2025-03-27 13:51 | XMS_ITS | Encounter Summary ---
Author Organization [facility] Address [address] [facility] [place] [address] Phone Care Team Providers Care Senior Gis Analyst Name Role Phone Cem Hinojosa MD Primary Care Provider [phone] Kajal Varma MD Unavailable [phone] Luis Bahena MD Unavailable Reason for Visit * Reason Comments Medication Refill Encounter Details Date Type Department Care Team (Late st Contact Info) Description 10/29/2023 Refill [facility] #2 [place] [address] Luis Bahena MD #2 [place] [address] Medication Refill Social History Tobacco [...] Description 08/23/2025 3:45 PM CDT Office Visit [facility] - Neurology - [place] [facility] [place] [address] Luis Bahena MD #2 [place] [address] 09/09/2025 3:45 PM SECOND RIDE FARE COLLECTOR Office Visit [facility] Family Medicine [facility] #2 [place] [address] Cem Hinojosa MD #[address] [address] documented as of this encounter Visit Diagnoses Diagnosis Parkinson's disease with dyskinesia and fluctuating manifestations (HCC) documented in this encounter Additional Health Concerns Assessment Noted Time PHQ-9 Depression Total Score: 0 02/21/20 21 10:15 AM CDT documented as of this encounter Care Teams Senior Gis Analyst Relationship Specialty Start Date End Date Cem Hinojosa MD #[address] [address] PCP - General Family Medicine 12/31/17 Kajal Varma MD #[address] [address] Gastroenterology 10/24/21 Luis Bahena MD #2 [place] [address] Consulting Physician Neurology 09/24/22 documented as of this encounter
--- OUTSIDE RECORDS SUMMARY | 2025-03-27 13:51 | XMS_ITS | Encounter Summary ---
Author Organization [facility] Address [address] [facility] [place] [address] Phone Care Team Providers Care Welder Boilermaker Name Role Phone Cem Hinojosa MD Primary Care Provider [phone] Kajal Varma MD Unavailable [phone] Luis Bahena MD Unavailable [phone] Reason for Visit * Reason Onset Date Comments Medication Refill 02/03/2021 Encounter Details Date Type Department Care Team (Late st Contact Info) Description 02/03/2021 Telephone [facility] #2 [place] [address] Cem Hinojosa MD #[address] [address] Medication Refill Social History Tobacco Use Types [...] encounter Miscellaneous Notes * Telephone Encounter - Nicole Correa - 02/03/2021 4:26 PM CDT Images from the original note were not included. documented in this encounter Plan of Treatment Upcoming Encounters Date Type Department Care Team (Late st Contact Info) Description 08/23/2025 3:45 PM CDT Office Visit [facility] - Neurology [facility] #2 [place] [address] Luis Bahena MD #2 [place] [address] 09/09/2025 3:45 PM RELIEF CAPTAIN Office Visit [facility] Family Medicine [facility] #2 [place] [address] Cem Hinojosa MD #[address] [address] documented as of this encounter Visit Diagnoses Not on filedocumented in this encounter Additional Health Concerns Assessment Noted Time PHQ-9 Depression Total Score: 0 05/02/20 20 8:41 AM CDT documented as of this encounter Care Teams Welder Boilermaker Relationship Specialty Start Date End Date Cem Hinojosa MD #[address] [address] PCP - General Family Medicine 12/31/17 Kajal Varma MD #[address] [address] Gastroenterology 10/24/21 Luis Bahena MD #2 [place] [address] Consulting Physician Neurology 09/24/22 documented as of this encounter
--- OUTSIDE RECORDS SUMMARY | 2025-03-27 13:51 | XMS_ITS | Encounter Summary ---
Author Organization [facility] Address [address] [facility] [place] [address] Phone Care Team Providers Care Licensed Loan Officer Name Role Phone Cem Hinojosa MD Primary Care Provider [phone] Kajal Varma MD Unavailable [phone] Luis Bahena MD Unavailable Reason for Visit * Reason Comments Medication Refill Encounter Details Date Type Department Care Team (Late st Contact Info) Description 02/06/2023 Refill [facility] #2 [place] [address] Cem Hinojosa MD #[address] [address] Medication Refill Social History Tobacco Use Types [...] Telephone Encounter - Zayda Luis RN - 02/06/2023 11:09 AM CDT Medication failed the protocol, provider to review and approve the medication order if appropriate. Requested Prescriptions Pending Prescriptions Disp Refills Fenofibrate Micronized 134 MG Capsule [Pharmacy Med Name: FENOFIBRATE CAP 134MG] 90 Capsule 3 Sig: TAKE 1 CAPSULE DAILY Fibrates Protocol Failed - 02/06/2023 12:21 AM Failed - Lipid panel in past [...] 07/17/22 Office Visit Cem Hinojosa MD [facility] 04/03/22 Office Visit Cem Hinojosa MD [facility] Showing recent visits within past 365 days and meeting all other requirements Future Appointments Date Type Provider Dept 02/08/23 Appointment Robbin Moralez APRN, FUR MATCHER [facility] Showing future appointments within next 90 days and meeting all other requirements documented in this encounter Plan of Treatment Upcoming Encounters Date Type Department Care Team (Late st Contact Info) Description 08/23/2025 3:45 PM CDT Office Visit [facility] - Neurology - [place] #2 [place] [address] Luis Bahena MD #2 [place] [address] 09/09/2025 3:45 PM NUCLEAR MEDICINE TECH Office Visit [facility] - [facility] - [place] #2 [place] [address] Cem Hinojosa MD #[address] [address] documented as of this encounter Visit Diagnoses Diagnosis Dyslipidemia Other and unspecified hyperlipidemia documented in this encounter Additional Health Concerns Assessment Noted Time PHQ-9 Depression Total Score: 0 02/21/20 21 10:15 AM CDT documented as of this encounter Care Teams Licensed Loan Officer Relationship Specialty Start Date End Date Cem Hinojosa MD #[address] [address] PCP - General Family Medicine 12/31/17 Kajal Varma MD #[address] [address] Gastroenterology 10/24/21 Luis Bahena MD #2 [place] [address] Consulting Physician Neurology 09/24/22 documented as of this encounter
--- OUTSIDE RECORDS SUMMARY | 2025-03-27 13:51 | XMS_ITS | Encounter Summary ---
Author Organization [facility] Address [address] [facility] [place] [address] Phone Care Team Providers Care Buckle Sewer Machine Name Role Phone Cem Hinojosa MD Primary Care Provider [phone] Kajal Varma MD Unavailable [phone] Luis Bahena MD Unavailable [phone] Reason for Visit * Reason Comments Medication Refill Encounter Details Date Type Department Care Team (Late st Contact Info) Description 07/29/2023 Refill [facility] #2 [place] [address] Cem Hinojosa MD #[address] [address] Medication Refill Social History Tobacco Use Types [...] suspected to have Coronavirus/COVID-19? No / Unsure 07/01/2023 3:24 PM CDT documented as of this encounter Miscellaneous Notes * Telephone Encounter - Lavern García RN - 07/30/2023 1:56 PM CDT PRN medication requires review from provider Per nursing clinical judgement, provider to review and approve the medication(s) order(s) if appropriate. Requested Prescriptions Pending Prescriptions Disp Refills sildenafil citrate (VIAGRA) 100 MG Tablet [Pharmacy Med Name: Sildenafil Citrate 100 MG Oral Tablet] 10 Tablet 0 Sig: TAKE 1 TABLET BY MOUTH NEEDED FOR ERECTILE DYSFUNCTION Erectile Dysfunction Medication Protocol Passed - 07/29/2023 5:01 PM Passed - Visit with relevant provider in past 12 months or upcoming 90 days Recent Visits Date Type Provider Dept 02/08/23 Office Visit Robbin Moralez APRN, PARTNER MARKETING INTERN [facility] Showing recent visits within past 365 days and meeting all other requirements Future Appointments Date Type Provider Dept 09/03/23 Appointment Cem Hinojosa MD [facility] Showing future appointments within next 90 days and meeting all other requirements Passed - Absence of nitrates on med list Passed - Erectile dysfunction on problem list documented in this encounter Plan of Treatment Upcoming Encounters Date Type Department Care Team (Late st Contact Info) Description 08/23/2025 3:45 PM CDT Office Visit [facility] Medical [facility] - Neurology [facility] #2 [place] [address] Luis Bahena MD #2 [facility] [place] [address] 09/09/2025 3:45 PM BIOMETRICS EXPERIMENTALIST Office Visit [facility] Medical [facility] - Family Medicine [facility] #[address] [place] [address] Cem Hinojosa MD [address] [place] [address] documented as of this encounter Visit Diagnoses Diagnosis Erectile dysfunction, unspecified erectile dysfunction type documented in this encounter Additional Health Concerns Assessment Noted Time PHQ-9 Depression Total Score: 0 02/21/20 21 10:15 AM CDT documented as of this encounter Care Teams Buckle Sewer Machine Relationship Specialty Start Date End Date Cem Hinojosa MD #[address] [address] PCP - General Family Medicine 12/31/17 Kajal Varma MD #[address] [address] Gastroenterology 10/24/21 Luis Bahena MD #2 [place] [address] Consulting Physician Neurology 09/24/22 documented as of this encounter
--- OUTSIDE RECORDS SUMMARY | 2025-03-27 13:51 | XMS_ITS | Encounter Summary ---
Author Organization [facility] Address [address] [facility] [place] [address] Phone Care Team Providers Care Glue Specialty Supervisor Name Role Phone Cem Hinojosa MD Primary Care Provider [phone] Kajal Varma MD Unavailable [phone] Luis Bahena MD Unavailable [phone] Reason for Visit * Reason Comments Medication Refill Encounter Details Date Type Department Care Team (Late st Contact Info) Description 01/19/2024 Refill [facility] #2 [place] [address] Cem Hinojosa MD #[address] [address] Medication Refill Social History Tobacco Use Types [...] Telephone Encounter - Lavern García RN - 01/20/2024 9:21 AM CDT Medication failed the protocol, provider to review and approve the medication order if appropriate. Requested Prescriptions Pending Prescriptions Disp Refills Fenofibrate Micronized 134 MG Capsule [Pharmacy Med Name: FENOFIBRATE CAP 134MG] 90 Capsule 3 Sig: TAKE 1 CAPSULE DAILY Fibrates Protocol Failed - 01/19/2024 7:10 AM Failed - Lipid panel in past 12 months LDL Date Value Ref Range Status 02/08/2023 91 0 - 130 mg/dL Final Passed - Visit with relevant provider in past 12 months or upcoming 90 days Recent Visits Date Type Provider Dept 09/03/23 Office Visit Cem Hinojosa MD [facility] 02/08/23 Office Visit Robbin Moralez APRN, SEW OUT OPERATOR [facility] Showing recent visits within past 365 days and meeting all other requirements Future Appointments Date Type Provider Dept 03/02/24 Appointment [facility]em [facility] Showing future appointments within next 90 days and meeting all other requirements documented in this encounter Plan of Treatment Upcoming Encounters Date Type Department Care Team (Late st Contact Info) Description 08/23/2025 3:45 PM CDT Office Visit [facility] Medical [facility] - Neurology - [place] #2 [place] [address] Luis Bahena MD #2 [place] [address] 09/09/2025 3:45 PM TANK FARM GAUGER Office Visit [facility] Medical [facility] - Family Medicine [facility] #2 [place] [address] Cem Hinojosa MD #[address] [address] documented as of this encounter Visit Diagnoses Diagnosis Dyslipidemia Other and unspecified hyperlipidemia documented in this encounter Additional Health Concerns Assessment Noted Time PHQ-9 Depression Total Score: 0 02/21/20 21 10:15 AM CDT documented as of this encounter Care Teams Glue Specialty Supervisor Relationship Specialty Start Date End Date Cem Hinojosa MD #[address] [address] PCP - General Family Medicine 12/31/17 Kajal Varma MD #[address] [address] Gastroenterology 10/24/21 Luis Bahena MD #2 [place] [address] Consulting Physician Neurology 09/24/22 documented as of this encounter
--- OUTSIDE RECORDS SUMMARY | 2025-03-27 13:51 | XMS_ITS | Encounter Summary ---
Author Organization [facility] Address [address] [facility] [place] [address] Phone Care Team Providers Care Pony Worker Name Role Phone Cem Hinojosa MD Primary Care Provider [phone] Kajal Varma MD Unavailable [phone] Luis Bahena MD Unavailable Reason for Visit * Reason Comments Medication Refill Encounter Details Date Type Department Care Team (Late st Contact Info) Description 07/07/2022 Refill [facility] Medicine [facility] #2 [place] [address] Cem Hinojosa MD #[address] [address] Medication Refill Social History Tobacco Use Types [...] encounter Miscellaneous Notes * Telephone Encounter - Mary Kate Suresh - 07/10/2022 10:51 AM CDT Called patient and patient's , on PRD, verbalized understanding. * Telephone Encounter - Lavern García RN - 07/10/2022 9:39 AM CDT Needs Vitamin D lab - pt has upcoming appt - he could do the lab then documented in this encounter Plan of Treatment Upcoming Encounters Date Type Department Care Team (Late st Contact Info) Description 08/23/2025 3:45 PM CDT Office Visit [facility] - Neurology - [place] #2 [place] [address] Luis Bahena MD #2 [place] [address] 09/09/2025 3:45 PM CIRCUIT WALKER Office Visit [facility] - Family Medicine - [place] #2 [place] [address] Cem Hinojosa MD #[address] [address] documented as of this encounter Visit Diagnoses Not on filedocumented in this encounter Additional Health Concerns Assessment Noted Time PHQ-9 Depression Total Score: 0 02/21/20 21 10:15 AM CDT documented as of this encounter Care Teams Pony Worker Relationship Specialty Start Date End Date Cem Hinojosa MD #[address] [address] PCP - General Family Medicine 12/31/17 Kajal Varma MD #[address] [place] [address] Gastroenterology 10/24/21 Luis Bahena MD #2 [place] [address] Consulting Physician Neurology 09/24/22 documented as of this encounter
--- OUTSIDE RECORDS SUMMARY | 2025-03-27 13:51 | XMS_ITS | Referral Summary ---
Author Organization [facility] Address 1 [place] [address] Care Team Providers Care Security Systems Engineer Name Role Phone Nik Horn DO Unavailable [phone] Cem Hinojosa MD Primary Care Provider [phone] Encounters Date Type Department Care Team Description 03/17/2025 Telephone [facility] Gastroenterology [address] [place] [address] [place] [address] [place] [address] Abby Haines Case Management- Insurance 03/09/2025 Documentation [facility] Gastroenterology [facility] [address] [place] [address] [place] [address] Melissa Romero RN Treatment Plan Update (03/04/2025 rov) 03/04/2025 3:30 PM CDT Office Visit [facility] G[facility] [address] [place] [address] [place] [address] Jojo Geiger NP High risk medications (not anticoagulants) long-term use (Primary Dx); Crohn's disease of small intestine without complication (HCC); Parkinson's disease with dyskinesia, unspecified whether manifestations fluctuate (HCC) 02/09/2025 Orders Only [facility] Gastroenterology [facility] [address] [place] [address] [place] [address] Kajal Varma MD High risk medications (not anticoagulants) long-term use (Primary Dx); Crohn's disease with complication, unspecified gastrointestinal tract location (HCC) from Last 3 Months Allergies No known active allergies Medications hydrocortisone [...] (10/31/2021): Added automatically from request for surgery [id number] Parkinson's disease 10/31/2021 Overview (10/31/2021): Added automatically from request for surgery [id number] Steatohepatitis 12/13/2020 Overview (12/13/2020): Added automatically from request for surgery [id number] NAFLD (nonalcoholic fatty liver disease) 021 Dyslipidemia 11/18/2020 Right upper quadrant pain 11/18/2020 High risk medications (not anticoagulants) long- term use 10/18/2019 Crohn's disease with complication 09/15/2018 Overview (09/15/2018): Added automatically from request for surgery [id number] Crohn's disease of small intestine without compl [...] desires to discuss with Dr Teague at [facility] and to begin prednisone now prior to consideration of a biologic. Will get appt at [facility], begin prednisone 40 and return 4 weeks, [...] crohn's sx. Suggested follow ER advisce of [place] for the pain and I suggested OTC TENS unit. He desires colonoscopy to answer the crohn's question. Immunizations Immunization Administration Dates Next Due Hep A, Adult 03/30/2016,08/30/2015 Hep B Vaccine 08/09/2016,03/21/2016,08/30/2015 Influenza, Quadrivalent, Yolie l Culture-based MDCK, Preservative Free, Antibiotic Free, Intramuscular 09/29/2019 Influenza, Quadrivalent, Spl it, Preservative Free, Intramuscular 08/24/2020,09/02/2018,08/09/2016 Influenza, Trivalent, IM (MDV) 10/06/2019,2016,08/04/2011 Influenza, Trivalent, Preser vative Free, Intramuscular 08/30/2015 Pneumococcal Conjugate PCV 13 09/29/2019 Tdap 10/08/2015,08/30/2015 Social History Tobacco Use Types Packs/Day Years [...] on file Legal Sex Male 10:48 AM C D REACTOR OPERATOR Gender Identity Not on file Sexual Orientation Not on file Last Filed Vital Signs Vital Sign Reading Time Taken Comments Blood Pressure 116/76 03/04/2025 3:20 PM CDT Pulse 69 03/04/2025 3:20 PM CDT Temperature 36.7 C (98.1 F) 03/04/2025 3:20 PM CDT Respiratory Rate 16 09/30/2024 4:25 PM C D REACTOR OPERATOR Oxygen Saturation 94% 09/30/2024 4:25 PM C D REACTOR OPERATOR Inhaled Oxygen Concentration - - Weight 106.6 kg (235 lb) 03/04/2025 3:20 PM CDT Height 180.3 cm (5' 11 ) 03/04/2025 3:20 PM CDT Body Mass Index 32.78 03/04/2025 3:20 PM CDT Plan of Treatment Not on file Medical Devices Implanted Type Area Variety Saw Operator Device Identifier Shelf Expiration Date Model / Serial / Lot Adryanopa Parkinson's Pump-12/28/2021 Abbvie J Implanted:2021 (Quantity not [...] at a safe distance from magnetic energy. https://www.YASSSU.[employer]/pdf/jenifer_pi.pdf#page=27 The AbbVie J (Intestinal Tube 9 FR for PEG 15 and 20 FR / [id number], [id number]) contains a small piece of metal in [...] sequence and a 1.5 Zeynep MRI system. https://www.YASSSU.[employer]/pdf/abbvie_mrisupp.pdf Procedures Procedure Name Priority Date/Time Associated Diagnosis [...] HEPATITIS C ANTIBODY Routine 10/24/2020 8:15 AM C D REACTOR OPERATOR Non-alcoholic fatty liver disease from Last 3 Months or Most Recently Relevant to Health Maintenance Results * TB test, quantiferon gold (02/20/2025 7:33 AM CDT) Pathologist [facility] QuantiFERON(R)-T B Gold Plus, 1 Tube NEGATIVE [...] T-lymphocytes. For additional information, please refer to https://education.Vaultize/faq/YBM276 (This link is being provided for informational/ educational purposes only.) Blood 02/20/2025 7:33 AM CDT 02/20/2025 7:34 AM CDT Narrative [facility] - 02/24/2025 12:58 PM CDT FASTING:YES FASTING: YES us Kajal Varma MD LAB BLOOD ORDERABLES Final Re sult [facility] [address] [place] [address] * CBC with auto differential (02/20/2025 7:33 AM CDT) Pathologist [facility] WBC 6.3 3.8 - 10.8 Thousand/u L [...] ORDERABLES Final Re sult Performing Organization Address [facility] de Phone Number [facility] [address] [place] [address] * CRP (acute phase) (02/20/2025 7:33 AM CDT) Pathologist [facility] C-RP <3.0 <8.0 mg/L [facility] Blood 02/20/2025 7:33 AM CDT 02/20/2025 7:34 AM CDT Narrative [facility] - 02/24/2025 12:58 PM CDT FASTING:YES FASTING: YES Kajal Varma MD LAB BLOOD ORDERABLES Final Re sult Performing Organization Address [facility] Co de Phone Number [facility] [address] [place] [address] * Comprehensive metabolic panel (02/20/2025 7:33 AM CDT) [facility] Glucose 94 65 - 99 mg/dL [facility] Comment: Fasting reference interval BUN 13 7 - 25 mg/dL [facility] Creatinine 1.14 0.70 - 1.30 mg/dL [facility] eGFR 76 > OR = 60 mL/min/1.7 3m2 [facility] BUN/creat ratio SEE NOTE: 6 - 22 (calc) [facility] Comment: Not Reported: [...] 02/24/2025 12:58 PM CDT FASTING:YES FASTING: YES us Kajal Varma MD LAB BLOOD ORDERABLES Final Re sult [facility] [address] [place] [address] * COLONOSCOPY (08/15/2023 10:13 AM CDT) Anatomical Region Laterality Modality Other Narrative Procedure Note Kajal Varma MD - 08/15/2023 10:13 AM CDT [facility] Patient Name: Morgan Barahona Procedure Date: 08/15/2023 10:13AM Date of : 1970 Admit Type: Outpatient Age: 53 Gender: Male Attending MD: Kajal Varma M.D. Room: [facility] ENDOSCOPY ROOM 8 Note Status: Animal Caregiver Override Procedure: Colonoscopy Indications: Disease activity assessment [...] The scope was passed under direct vision.The [id number] endoscope was introduced through the anus and [...] hemostaticclips were successfully placed (MR conditional). Clip recessing machine operator: Site Tour. There was no bleeding at the end [...] retrieved. Clips (MR conditional) were placed. Clip recessing machine operator: Site Tour. - One 2 mm polyp in the [...] On: 08/15/2023 10:13 AM Recognized by the [employer] for promoting quality in endoscopy Kajal Varma MD ENDOSCOPY PROCEDURES Edited R esult - Final * Hepatitis C antibody (10/24/2020 8:15 AM C D REACTOR OPERATOR) Hep C Ab Nonreactive Nonreactive JOEL RAMON Comment:Antibodies to HCV no t detected. Does NOT exclude the possibility of recent exposure to HCV. Blood specimen (specimen) 10/24/2020 8:15 AM C D REACTOR OPERATOR 10/24/2020 8:44 AM C D REACTOR OPERATOR Kodi Maloney MD LAB MICROBIOLOGY - GENER AL ORDERABLES Edited Result - Final [facility] [place] [address] from Last 3 Months or Most Recently Relevant to Health Maintenance Insurance [facility] CIG OPEN ACCESS [facility] PPO ANTHEM ACCESS CHOICE BLUE ACC CHOICE [facility]OS GENERIC COPAY ASSIST [facility] [address] [place] [address] ANTHEM ACCESS CHOICE ANTHEM ACCESS CHOICE [place] Advance Directives For more information, please contact: [phone] * Full Code (Latest Code Status on [...] 7:36 AM 11/13/2021 2:40 PM Care Teams Security Systems Engineer Relationship Specialty Start Date End Date Cem Hinojosa MD [address] [address] PCP - General 03/04/18 Nik Horn DO [address] [address] 08/16/17
--- OUTSIDE RECORDS SUMMARY | 2025-03-27 13:51 | XMS_ITS | Encounter Summary ---
Author Organization [facility] Healthcare Address [address] [place] [address] Care Team Providers Care Language Translator Name Role Phone Nik Horn DO Unavailable [phone] Cem Hinojosa MD Primary Care Provider [phone] Encounter Details Date Type Department Care Team (Late st Contact Info) Description 05/27/2020 Telephone [facility] [address] [place] [address] Kajal Varma MD [address] [place] [address] Social History Tobacco Use Types Packs/Day Years Used Date Smoking Tobacco: Never Smokeless Tobacco: Never Alcohol Use Standard Drinks/Week Comments No 0 (1 standard drink = 0.6 oz pur e alcohol) Sex and Gender Information Value Date Recorded Sex Assigned at Not on file Legal Sex Male 10:48 AM MAIL WEIGHER Gender Identity Not on file Sexual Orientation Not on file documented as of this encounter Plan of Treatment Not on file documented as of this encounter Visit Diagnoses Not on filedocumented in this encounter Care Teams Language Translator Relationship Specialty Start Date End Date Cem Hinojosa MD [address] [address] PCP - General 03/04/18 Nik Horn, 2 [facility] [address] [address] 08/16/17 documented as of this encounter
--- OUTSIDE RECORDS SUMMARY | 2025-03-27 13:51 | XMS_ITS | Encounter Summary ---
Author Organization [facility] Address [address] [facility] [place] [address] Phone Care Team Providers Care Manager Agricultural Name Role Phone Cem Hinojosa MD Primary Care Provider [phone] Kajal Varma MD Unavailable [phone] Luis Bahena MD Unavailable [phone] Reason for Visit * Reason Comments Medication Refill Encounter Details Date Type Department Care Team (Late st Contact Info) Description 08/28/2023 Refill [facility] - [facility] [address] [place] [id number] Cem Hinojosa MD [address] [address] Medication Refill Social History Tobacco Use Types [...] Telephone Encounter - Lavern García RN - 08/28/2023 8:49 AM CDT Medication failed the protocol, provider to review and approve the medication order if appropriate. Requested Prescriptions Pending Prescriptions Disp Refills Cyanocobalamin (B-12) 500 MCG Tablet [Pharmacy Med Name: B-12 500 MCG TABLET] 90 Tablet 1 Sig: TAKE 1 TABLET BY MOUTH EVERY DAY Not Delegated - Off Protocol Failed - 08/28/2023 12:51 AM Failed - This refill cannot be delegated Passed - Visit with relevant provider in past 12 months or upcoming 90 days Recent Visits Date Type Provider Dept 02/08/23 Office Visit Robbin Moralez APRN, WIRE TWISTING MACHINE OPERATOR [facility] Showing recent visits within past 365 days and meeting all other requirements Future Appointments Date Type Provider Dept 09/03/23 Appointment Cem Hinojosa MD [facility] Showing future appointments within next 90 days and meeting all other requirements documented in this encounter Plan of Treatment Upcoming Encounters Date Type Department Care Team (Late st Contact Info) Description 08/23/2025 3:45 PM CDT Office Visit [facility] Medical [facility] - Neurology - [place] [address] [place] [address] Luis Bahena MD [address] [place] [address] 09/09/2025 3:45 PM AUTOMATIC WINDER OPERATOR Office Visit [facility] Medical [facility] - Family Medicine - [place] [address] [place] [address] Cem Hinojosa MD #[address] [address] documented as of this encounter Visit Diagnoses Not on filedocumented in this encounter Additional Health Concerns Assessment Noted Time PHQ-9 Depression Total Score: 0 02/21/20 21 10:15 AM CDT documented as of this encounter Care Teams Manager Agricultural Relationship Specialty Start Date End Date Cem Hinojosa MD #[address] [address] PCP - General Family Medicine 12/31/17 Kajal Varma MD #[address] [address] Gastroenterology 10/24/21 Luis Bahena MD [address] [place] [address] Consulting Physician Neurology 09/24/22 documented as of this encounter
[2025-03-27 13:52] VITALS: BP 113/64; PULSE 73; RESP 16; TEMP 36.6; O2SAT 99
--- OUTSIDE RECORDS SUMMARY | 2025-03-27 13:52 | XMS_ITS | Encounter Summary ---
Author Organization [facility] Address [address] [facility] [place] [address] Phone Care Team Providers Care Fabricator Artificial Breast Name Role Phone Cem Hinojosa MD Primary Care Provider [phone] Kajal Varma MD Unavailable [phone] Luis Bahena MD Unavailable [phone] Reason for Visit * Reason Comments Medication Refill Encounter Details Date Type Department Care Team (Late st Contact Info) Description 09/10/2021 [facility]ill [facility] [address] [place] [address] Cem Hinojosa MD [address] [address] Medication Refill Social History Tobacco Use Types [...] encounter Miscellaneous Notes * Telephone Encounter - Abby Baker RN - 09/11/2021 2:54 PM CST Medication failed the protocol, provider to review and approve the medication order if appropriate. Requested Prescriptions Pending Prescriptions Disp Refills vitamin b-12 (CYANOCOBALAMIN) 500 MCG Tablet [Pharmacy Med Name: VITAMIN B-12 TABS 500MCG] 90 Tablet 3 Sig: TAKE 1 TABLET DAILY [facility] Off-Protocol Failed - 09/10/2021 11:38 PM Failed - Medication not assigned to a protocol, review manually. Passed - Valid encounter within last 12 months Past Office Visits Recent Outpatient Visits 3 months ago Erectile dysfunction, unspecified [facility] 6 months ago Dyslipidemia [facility] Cem Hernandez MD 10 months ago [facility] year [facility] Upcoming Appointments Future Appointments In 2 weeks Luis Bahena MD [facility] Neu[facility] In 2 weeks Robbin Moralez APRN, CNP [facility] DRAMATIC ART TEACHER - Recent and Past Visits Recent Visits Date Type Provider Dept 05/26/21 Office Visit Robbin Moralez APRN, CNP [facility] 02/20/21 Office Visit Cem Hinojosa MD [facility] 10/31/20 Office Visit Cem Hinojosa MD [facility] 10/18/20 Office Visit Cem Hinojosa MD [facility] 08/24/20 Office Visit Cem Hinojosa MD [facility] Showing recent visits within past 460 days with a meds authorizing provider and meeting all other requirements Future Appointments Date Type Provider Dept 09/25/21 Appointment Robbin Moralez APRN, CNP [facility] Showing future appointments within next 90 days with a meds authorizing provider and meeting all other requirements EAD TRIMMER AND WRAPPER documented in this encounter Plan of Treatment Upcoming Encounters Date Type Department Care Team (Late st Contact Info) Description 08/23/2025 3:45 PM CDT [facility] [address] [place] [address] Luis Bahena MD [address] [place] [address] 09/09/2025 3:45 PM MOPHEAD TRIMMER AND WRAPPER Office Visit [facility] Family Medicine [facility] [address] [place] [address] Cem Hinojosa MD #[address] [address] documented as of this encounter Visit Diagnoses Not on filedocumented in this encounter Additional Health Concerns Assessment Noted Time PHQ-9 Depression Total Score: 0 02/21/20 10:15 AM CDT documented as of this encounter Care Teams Fabricator Artificial Breast Relationship Specialty Start Date End Date Cem Hinojosa MD #[address] [address] PCP - General Family Medicine 12/31/17 Kajal Varma MD [address] [place] [address] Gastroenterology 10/24/21 Luis Bahena MD [address] [place] [address] Consulting Physician Neurology 09/24/22 documented as of this encounter
--- OUTSIDE RECORDS SUMMARY | 2025-03-27 13:52 | XMS_ITS | Encounter Summary ---
Author Organization [facility] Address [address] [facility] [place] [address] Phone Care Team Providers Care Brand Advisor Name Role Phone Cem Hinojosa MD Primary Care Provider [phone] Kajal Varma MD Unavailable [phone] Luis Bahena MD Unavailable [phone] Reason for Visit * Reason Comments Medication Refill Encounter Details Date Type Department Care Team (Late st Contact Info) Description 09/28/2021 Refill [facility] [address] [place] [id number] Robbin oMralez, ASSEMBLER DIELECTRIC HEATER, OPEN TENTER OPERATOR [address] [address] Medication Refill Social History Tobacco Use Types [...] have Coronavirus / COVID-19? No / Unsure 09/25/2021 8:44 AM MORTGAGE SALES MANAGER documented as of this encounter Miscellaneous Notes * Telephone Encounter - Lavern García RN - 09/29/2021 2:52 PM CST Medication warning Per nursing clinical judgement, provider to review and approve the medication(s) order(s) if appropriate. Requested Prescriptions Pending Prescriptions Disp Refills Fenofibrate Micronized 134 MG Capsule [Pharmacy Med Name: FENOFIBRATE CAPS 134MG] 90 Capsule 3 Sig: TAKE 1 CAPSULE DAILY Fibrates Protocol Passed - 09/28/2021 11:27 PM Passed - Visit with relevant provider in past 12 months or upcoming 90 days Recent Visits Date Type Provider Dept 09/25/21 Office Visit Robbin Moralez APRN, [facility] 05/26/21 Office Visit Robbin Moralez APRN, RAD[facility] 02/20/21 Office Visit Cem Hinojosa MD [facility] 10/31/20 Office Visit Cem Hinojosa MD [facility] 10/18/20 Office Visit [facility] Showing recent visits within past 365 days and meeting all other requirements Future Appointments No visits were found meeting these conditions. Showing future appointments within next 90 days and meeting all other requirements Passed - Lipid panel in past 12 months LDL Date Value Ref Range Status 09/25/2021 119 5 - 130 mg/dL Final 02/25/2021 87 0 - 130 mg/dL Final HDL CHOLESTEROL [...] Status 09/25/2021 138.9 (H) <130 mg/dL Final GAGE SALES MANAGER documented in this encounter Plan of Treatment Upcoming Encounters Date Type Department Care Team (Late st Contact Info) Description 08/23/2025 3:45 PM CDT Office Visit [facility] [address] [place] [address] Luis Bahena MD [address] [place] [address] 09/09/2025 3:45 PM MORTGAGE SALES MANAGER Office Visit [facility] [address] [place] [address] Cem Hinojosa MD #[address] [address] documented as of this encounter Visit Diagnoses Diagnosis Dyslipidemia Other and unspecified hyperlipidemia documented in this encounter Additional Health Concerns Assessment Noted Time PHQ-9 Depression Total Score: 0 02/21/20 10:15 AM CDT documented as of this encounter Care Teams Brand Advisor Relationship Specialty Start Date End Date Cem Hinojosa MD #[address] [address] PCP - General Family Medicine 12/31/17 Kajal Varma MD #[address] [address] Gastroenterology 10/24/21 Luis Bahena MD [address]2 [place] [address] Consulting Physician Neurology 09/24/22 documented as of this encounter
--- OUTSIDE RECORDS SUMMARY | 2025-03-27 13:52 | XMS_ITS | Encounter Summary ---
Author Organization [facility] Address [address] [facility] [place] [address] Phone Care Team Providers Care Riveting Machine Operator Automatic Name Role Phone Cem Hinojosa MD Primary Care Provider [phone] Kajal Varma MD Unavailable [phone] Luis Bahena MD Unavailable Reason for Visit * Reason Comments Medication Refill Encounter Details Date Type Department Care Team (Late Contact Info) Description 05/16/2021 Refill [facility] [place] [facility] [address] [place] [address] Luis Bahena MD [address] [place] [address] Medication Refill Social History Tobacco [...] Description 08/23/2025 3:45 PM CDT Office Visit [facility] - Neurology [facility] [address] [place] [address] Luis Bahena MD [address] [place] [address] 09/09/2025 3:45 PM SEO ASSOCIATE Office Visit [facility] Family Medicine [facility] [address] [place] [address] Cem Hinojosa MD [address] [address] documented as of this encounter Visit Diagnoses Not on filedocumented in this encounter Additional Health Concerns Assessment Noted Time PHQ-9 Depression Total Score: 0 02/21/20 21 10:15 AM CDT documented as of this encounter Care Teams Riveting Machine Operator Automatic Relationship Specialty Start Date End Date Cem Hinojosa MD [address] [address] PCP - General Family Medicine 12/31/17 Kajal Varma MD [address] [address] Gastroenterology 10/24/21 Luis Bahena MD [address] [place] [address] Consulting Physician Neurology 09/24/22 documented as of this encounter
--- OUTSIDE RECORDS SUMMARY | 2025-03-27 13:52 | XMS_ITS | Continuity of Care Document ---
Author Organization [facility] [place] Address [address] [place] [address] [place] [phone] Phone Care Team Providers Care Mammography Technician Name Role Phone Tyler PT, CMPT, Girma Unavailable Perla vailable Procedures Procedure Date Progress Note Therapeutic Exercise Therapeutic Activities Manual Therapy Hot or Cold Pack Therapeutic Exercise Therapeutic Activities Manual Therapy Hot or Cold Pack Therapeutic Exercise Therapeutic Activities Manual Therapy Hot or Cold Pack Therapeutic Exercise Therapeutic Activities Manual Therapy Therapeutic Exercise Manual Therapy Hot or Cold Pack PT Evaluation Moderate Complexity Therapeutic Exercise Manual Therapy Hot or Cold Pack Progress Note Therapeutic Exercise Therapeutic Activities Neuromuscular Re-Ed Manual Therapy Hot or Cold Pack Therapeutic Exercise Therapeutic Activities Neuromuscular Re-Ed Manual Therapy Hot or Cold Pack Therapeutic Exercise Therapeutic Activities Neuromuscular Re-Ed Manual Therapy Hot or Cold Pack Therapeutic Exercise Therapeutic Activities Neuromuscular Re-Ed Manual Therapy Hot or Cold Pack Therapeutic Exercise Therapeutic Activities Neuromuscular Re-Ed Manual Therapy Hot or Cold Pack Therapeutic Exercise Therapeutic Activities Neuromuscular Re-Ed Manual Therapy Hot or Cold Pack Therapeutic Exercise Therapeutic Activities Neuromuscular Re-Ed Manual Therapy Hot or Cold Pack Therapeutic Exercise Therapeutic Activities Neuromuscular Re-Ed Manual Therapy Hot or Cold Pack Therapeutic Exercise Therapeutic Activities Neuromuscular Re-Ed Manual Therapy Hot or Cold Pack Therapeutic Exercise Therapeutic Activities Neuromuscular Re-Ed Manual Therapy Hot or Cold Pack Therapeutic Exercise Therapeutic Activities Neuromuscular Re-Ed Manual Therapy Hot or Cold Pack Progress Note Therapeutic Exercise Therapeutic Activities Neuromuscular Re-Ed Manual Therapy Hot or Cold Pack Therapeutic Exercise Therapeutic Activities Neuromuscular Re-Ed Manual Therapy Hot or Cold Pack Therapeutic Exercise Therapeutic Activities Neuromuscular Re-Ed Manual Therapy Hot or Cold Pack Therapeutic Exercise Therapeutic Activities Neuromuscular Re-Ed Manual Therapy Hot or Cold Pack Therapeutic Exercise Therapeutic Activities Neuromuscular Re-Ed Manual Therapy Hot or Cold Pack Progress Note Therapeutic Exercise Therapeutic Activities Neuromuscular Re-Ed Manual Therapy Hot or Cold Pack Therapeutic Exercise Therapeutic Activities Neuromuscular Re-Ed Manual Therapy Hot or Cold Pack Therapeutic Exercise Therapeutic Activities Neuromuscular Re-Ed Manual Therapy Hot or Cold Pack Therapeutic Exercise Therapeutic Activities Neuromuscular Re-Ed Manual Therapy Hot or Cold Pack Therapeutic Exercise Therapeutic Activities Neuromuscular Re-Ed Manual Therapy Hot or Cold Pack OT Evaluation Moderate Complexity Therapeutic Exercise Hot or Cold Pack Advance Directives Directive Yes / No Effective Date File Name No Information Encounters Encounter Description Practice Location Reason(s) For Visit Diagnoses Date Provider Providers Copied on Encounter [facility] [address] [facility] [address], [place], [id number], tel:[phone] Oscar No Information 8 Lee Rayo. [address] [place] [address], [place] [address], . tel:[phone] Referring Provider: Omar Mishra, [address], [place], [place], [facility]. tel:[phone] [address], [place], [id number], tel:[phone] Oscar No Information 8 Lee Rayo. [address] [place] [address], [address] [address], . tel:[phone] Referring Provider: Omar Mishra [address], [place], [address]. tel:[phone] [place] [address], [id number], tel:[phone] Oscar No Information 8 Lee peters Girma. [address] [place] [address], [address], [place], [place], [facility], . tel:[phone] Referring Provider: Omar Mishra, [address], [place], [address]. tel:[phone] [facility] [address] [place] [address], [id number], tel:[phone] [place] No Information Fabián Ortiz. [facility] [place], [address], [place]. tel:[phone] Referring Provider: Omar Mishra, [address], [place], [address]. tel:[phone] [place] [address], [id number], tel:[phone] [place] No Information Lee Ryao. [address] [place] [address], [address], [place], [facility] [place], . tel:[phone] Referring Provider: Omar Mishra, [address], [place], [address]. tel:[phone] [facility] [address] [place] [address], [id number], [place] tel:[phone] [place] Pain in left shoulderStiffness of left shoulder, not elsewhere classifiedMyalgia Strain unsp musc/fasc/tend at shldr/up arm, left arm, subs 7 Lee peters Girma. [address] [place] [address], [address], [place], [place], [facility] [place], . tel:[phone] Referring Provider: Omar Mishra, [address], [place], [address]. tel:[phone] [facility], [facility] [address], [place], [place], [id number], [place] tel:[phone] Oscar No Information Dec-1 5- 7 Guimbarda Lesley. . Referring Provider: Silvano Black, [address] [facility] [address], [place], [address]. tel:[phone] [place] [address] [address], [place], [place], [id number], [place] tel:[phone] [place] No Information Dec-1 2-201 7 Guimbarda Lesley. . Referring Provider: Silvano Black, [address] [facility] [address], [place], [address]. tel:[phone] [place], [place] [address], [place], [place], [id number], tel:[phone] [place] No Information Dec-1 7 Guimbarda Lesley. . Referring Provider: Silvano Black, [address] [facility] [address], [place], [address]. tel:[phone] [place] [address] [address], [place], [place], [id number], tel:[phone] Oscar No Information Dec-0 - 7 Jennings Miladis. [address] [place] [address], [address], [place], [facility] [place], [place]. tel:[phone] Referring Provider: Silvano Black, [address] [facility] [address], [place], [address]. tel:[phone] [place], [place] [address], [place], [place], [id number], tel:[phone] Oscar No Information Dec-0 - 7 Jennings Miladis. [address] [facility], [address], [place], [facility] [place], [place]. tel:[phone] Referring Provider: Silvano Black, [address], [place], [address]. tel:[phone] [place], [place] [address]uite [facility], [place], [place], [id number], tel:[phone] Oscar No Information Dec-0 4-201 7 Michaela Redding. [address] [place] [address], [address], [facility] [place], . tel:[phone] Referring Provider: Silvano Black, [address] [facility] [address], [place], [address]. tel:[phone] [place], [place] [address]uite [facility], [place], [place], [id number], tel:[phone] Oscar No Information Nov-3 0-201 7 Michaela Redding. [address] [place] [address], [address], [facility] [place], . tel:[phone] Referring Provider: Silvano Black, [address] [facility] [address], [place], [address]. tel:[phone] [place], [place] [address]uite [facility], [place], [place], [id number], tel:[phone] [place] No Information Nov-2 8-201 7 Guimbarda Lesley. . Referring Provider: Silvano Black, [address], [place], [address]. tel:[phone] [place], [place] [address], [place], [place], [id number], tel:[phone] [place] No Information Nov-2 7-201 7 Guimbarda Lesley. . Referring Provider: Silvano lBack, [address], [place], [address]. tel:[phone] [place], [place] [address], [place], [place], [id number], [place] tel:[phone] Oscar No Information 7 Jennings Miladis. [address] [place] [address], [address], [address], [place]. tel:[phone] Referring Provider: Francisco Mckeon [facility] [address], [place], [address]. tel:[phone] [place], [place] [address]e [facility], [place], [place], [id number], tel:[phone] [place] No Information 7 Jennings Miladis. [address] [place] [address], [address], [address], [place]. tel:[phone] Referring Provider: Francisco Mckeon [facility] [address], [place], [address]. tel:[phone] [place], [place] [address]e [address] [place] [address], [id number], [place] tel:[phone] Oscar No Information 7 Jennings Miladis. [address] [place] [address], [address], [address], [place]. tel:[phone] Referring Provider: Francisco Mckeon [facility] [address], [address]. tel:[phone] [place], [place] [address] [place] [address], [id number], [place] tel:[phone] [place] No Information 7 Jennings Miladis. [address] [place] [address], [address], [address], [place]. tel:[phone] Referring Provider: Francisco Mckeon [facility] [address], [place], [address]. tel:[phone] [place], [place] [address], [place], [place], [id number], tel:[phone] Oscar No Information 7 Jennings Miladis. [address] [place] [address], [address], [place], [facility] [place], . tel:[phone] Referring Provider: Deepa Mckeon[address] [facility] [address], [place], [address]. tel:[phone] [place] [address], [id number], tel:[phone] Oscar No Information Nov-0 9-201 7 Jennings Miladis. [address] [place] [address], [facility] [address], [place], [facility] [place], [place]. tel:[phone] Referring Provider: Deepa Mckeon[address] [facility] [address], [place], [address]. tel:[phone] [place] [address], [id number], [place] tel:[phone] [place] No Information Nov-0 7-201 7 Jennings Miladis. [address] [place] [address], [address], [facility] [place], [place]. tel:[phone] Referring Provider: Deepa Mckeon[address] [facility] [address], [place], [address]. tel:[phone] [place] [address], [id number], [place] tel:[phone] Oscar No Information Nov-0 6-201 7 Jennings Miladis. [address] [place] [address], [address], [facility] [place], [place]. tel:[phone] Referring Provider: Deepa Mckeon[address] [facility] [address], [place], [address]. tel:[phone] [place] [address], [id number], tel:[phone] Oscar No Information Nov-0 2-201 7 Jennings Miladis. [address] [place] [address], [address], [facility] [place], [place]. tel:[phone] Referring Provider: Silvano Black, [address] [facility] [address], [address]. tel:[phone] [place] [address], [id number], tel:[phone] Oscar No Information Michaela Redding. [address] [place] [address], [address], [facility] [place], . tel:[phone] Referring Provider: Silvano Black, [address] [facility] [address], [place], [address]. tel:[phone] [place] [address], [id number], tel:[phone] Oscar No Information Michaela Redding. [address] [place] [address], [address], [facility] [place], [place]. tel:[phone] Referring Provider: Silvano Black, [address] [facility] [address], [place], [address]. tel:[phone] [place] [address], [id number], tel:[phone] [place] No Information Michaela Redding. [address] [place] [address], [address], [facility] [place], . tel:[phone] Referring Provider: Silvano Black, [address] [facility] [address], [place], [address]. tel:[phone] [place] [address], [id number], tel:[phone] Oscar Pain in left handStiffness of left hand, not elsewhere classifiedEffusio n, left handOth symptoms and signs involving the musculoskeletal systemComplete traumatic MCP amputation of unsp finger, subs Aug- 7 Michaela Redding. [address] [facility], [address], [place], [address], [place]. tel:[phone] Referring Provider: Silvano Black, [facility] [address], [place], [address]. tel:[phone] Family History Family Member Type Diagnosis Age At Onset No Information Payers Payer name Insurance type Covered green party ID Authoriza tion(s) [employer] EPO WC SP [id number] Social History Type Description Quantity Date Captured Comments Sex Male Smoking Status No Information Chief Complaint And Reason For Visit No Information Reason For Referral Reason For Referral No Information History Of Present Illness Encounter Date Complaint History Of Prese nt Illness No Information Functional Status Date Functional Assessmen t No Information Instructions Date Instruction Additional Infor mation No Information Assessments Type Assessment Date No Information Patient Care Teams Name Effective Dates (start - stop) Status Members No Information
--- NOTE | 2025-03-27 14:07 | ED.URI ---
HPI - URI/Sore Throat General Chief Complaint: Upper Respiratory Infection Stated Complaint: Sore Throat Time Seen by Provider: 03/27/25 14:00 Source: patient and RN notes reviewed Mode of arrival: ambulatory Limitations: no limitations History of Present Illness HPI Narrative: 54-year-old male presents Express Care complaining of sore throat ear pain since this morning. Patient was eating breakfast at a restaurant he frequently goes to and while he was eating he noticed his throat began to hurt and was painful to swallow. Patient denies eating anything new and reported eating eggs, sausage, pancakes that he normally eats at this restaurant. Patient also reports having bilateral ear pain and feeling drainage in his throat. Patient denies feeling sick. Patient denies any allergies. Patient denies any congestion, cough, fevers, body aches, chills, rash, hives, swelling to his face, throat, tongue, lips, neck, or any difficulty breathing or chest pain. Patient denies any difficulty clearing secretions. Patient has a history of Parkinson's. Patient reports a sore throat pain and a out of 10. Related Data Home Medications ?Medication ?Instructions ?Recorded ?Confirmed ?Last Taken ?Type carbidopa 25 mg-levodopa 100 mg 1 tablet PO BID 01/10/20 01/10/20 Unknown History tablet cyanocobalamin (vitamin B-12) 500 500 mcg PO DAILY 01/10/20 01/10/20 Unknown History mcg tablet (Vitamin B-12) rosuvastatin 10 mg tablet 10 mg PO DAILY 01/10/20 01/10/20 Unknown History ustekinumab 90 mg/mL subcutaneous 90 mg subcut ONCE 01/10/20 01/10/20 Unknown History syringe (Stelara) Allergies Allergy/AdvReac Type Severity Reaction Status Date / Time No Known Allergies Allergy Verified 03/27/25 14:00 Review of Systems Review of Systems: CONSTITUTIONAL: Denies fever, chills, body aches, or sweats. EYES: Denies visual changes, redness, or discharge. ENT: Positive for sore throat, and otalgia. Negative for congestion or rhinorrhea. CARDIOVASCULAR: Denies chest pain, palpitations, or edema. RESPIRATORY: Negative for dyspnea, wheezing, or cough. GASTROINTESTINAL: Denies abdominal pain, nausea, vomiting, or diarrhea. GENITOURINARY: Denies dysuria or hematuria. SKIN: Denies rash or itching. MUSCULOSKELETAL: Denies back pain, joint pain, or myalgia. NEUROLOGIC: Denies headache, numbness, or weakness. PSYCHIATRIC: Denies anxiety or depression. All other systems reviewed are negative, except as documented in HPI. PMFSH Comments At the time of my signature, I reviewed and agree with the nursing past medical, surgical, social, and family history. There is no relevant family history pertinent to the patient complaint. Exam Narrative: GENERAL: This is a well-nourished, well-developed adult, in no apparent distress. They are non ill-appearing, nontoxic appearing. HEAD: normocephalic, atraumatic. EYES: Sclera clear/white. Vision is grossly intact. Conjunctiva normal bilaterally. Extraocular movements intact. EARS: External ears normal, auditory canals clear and without drainage, TMs without erythema or perforation. Hearing grossly intact. NOSE: External nose normal with no obvious nasal discharge, nasal turbinates erythematous without exudate, no rhinorrhea. THROAT: Mucous membranes moist, posterior pharynx erythematous without exudate. Tonsils 3+ erythematous without exudate. Uvula is midline. Postnasal drip present. OROPHARYNX: Clear without swelling, redness, or suspicious lesions. Teeth intact. Tongue normal without swelling, redness, or pain NECK: Neck supple, non-tender without lymphadenopathy, masses, swelling or thyromegaly. CARDIOVASCULAR: Regular rate and rhythm without murmurs, gallops, or rubs. RESPIRATORY: Clear to auscultation. Breath sounds equal bilaterally. No wheezes, rales, or rhonchi. Respiratory rate normal, respiratory effort nonlabored, no respiratory distress SKIN: warm, Dry, intact with no suspicious lesions or rash, good texture and turgor. NEURO: awake, alert, and oriented to person, place and time. There were no obvious focal neurologic abnormalities. EXTREMITIES: No joint tenderness, effusion, or edema noted. BACK: Nontender without deformity. Course Course Emergency Course: Portions of this record may have been created with voice recognition software Level of Care: Express Care Visit Vital Signs Vital signs: Vital Signs Temperature 97.8 F 03/27/25 13:52 Pulse Rate 73 03/27/25 13:52 Respiratory Rate 16 03/27/25 13:52 Blood Pressure 113/64 03/27/25 13:52 Pulse Oximetry 99 03/27/25 13:52 Oxygen Delivery Room Air 03/27/25 13:52 Temperature 97.8 F 03/27/25 13:52 Pulse Rate 73 03/27/25 13:52 Respiratory Rate 16 03/27/25 13:52 Blood Pressure 113/64 03/27/25 13:52 Pulse Oximetry 99 03/27/25 13:52 Oxygen Delivery Room Air 03/27/25 13:52 MDM - URI/Sore Throat MDM Narrative Medical decision making narrative: Rapid strep negative. Throat Culture pending. Given patient throat pain and swelling I gave the patient a 1 time dose of dexamethasone. Appears coincidently patient is developing a viral pharyngitis or upper respiratory infection while he was eating breakfast this morning. No evidence of allergic reaction present. No swelling to the face, tongue, throat, neck. No evidence of respiratory distress. Patient is able to clear his secretions without difficulty. Discussed physical exam findings. Advised supportive measures and signs/symptoms to go to the ER. Pt is appropriate for outpt treatment and f/u. Differential Diagnosis Differential diagnosis: Likely upper respiratory infection, viral infection and pharyngitis Lab Data Attestation: I reviewed the patient's lab results. Labs: Lab Results 03/27/25 Range/Units 14:12 POC Grp A Strep Screen Negative (Negative) Discharge Plan Discharge Clinical Impression: Pharyngitis Qualifiers: Pharyngitis/tonsillitis etiology: unspecified etiology Qualified Code(s): J02.9 - Acute pharyngitis, unspecified Patient Disposition: Home Condition: Stable Instructions: Pharyngitis (ED) Additional Instructions: Your rapid strep swab was negative today at [facility]. You will be notified in a few days if the culture comes back positive for strep, and appropriate antibiotics will be called in for you at that time. Your symptoms are likely due to a viral illness, which is not treated with antibiotics. Viral symptoms can be present for up to 10-14 days. Take the dexamethasone as directed. You were given 1 time dose today of dexamethasone so start your prescription tomorrow. Take Tylenol or ibuprofen for fever or pain. Rest and stay hydrated. Follow up with your PCP in 3-5 days if symptoms are not improving. Go to the ER immediately if you develop difficulty breathing or swallowing, excessive drooling, or any swelling to her face, lips, tongue, or any other concerns. Patient Language: Hebrew Prescriptions: New dexamethasone 6 mg tablet 6 mg PO DAILY 3 Days Qty: 3 0RF No Action cyanocobalamin (vitamin B-12) [Vitamin B-12] 500 mcg Tablet 500 mcg PO DAILY carbidopa-levodopa 25-100 mg Tablet 1 tablet PO BID rosuvastatin 10 mg Tablet 10 mg PO DAILY Stelara 90 mg/mL Syringe 90 mg SUBCUT ONCE fluticasone propionate [Flonase Allergy Relief] 50 mcg/actuation spray,suspension 2 spray NASAL DAILY Qty: 15.8 0RF Rx Instructions: administer into each nostril Follow-up/Referrals: Ashish,Cem Garcia MD [Primary Care Provider] - Time of Disposition: 14:23
[2025-03-27] MEDS: dexAMETHasone 10 MG/10 ML INTENSOL CONC (*BKC) PO (14:11)
[2025-03-27 14:14] LABS: EDSTREPNEGPOS1 Negative (Negative)
== END 2025-03-27 14:34 | disposition home or self-care (01) ==
PROVIDERS: PCP Family Medicine
DX: J02.9 Acute pharyngitis, unspecified (principal); G20.A1 Parkinson's disease without dyskinesia, without mention of fluctuations; K50.90 Crohn's disease, unspecified, without complications
CPT/HCPCS: 87081; 87880; 99213; G0463; J8540